=== PATIENT | male | born 1970 | race African-American/Black ===

== ENCOUNTER 2017-04-21 10:33 | Emergency (ER) | payer BC ==
[~2017-04-21 10:33] MED LIST: LORT5TAB PO; Z.0.NO CURRENT MEDS
[2017-04-21 10:36] VITALS: BP 226/135; PULSE 90; RESP 16; TEMP 98.1; O2SAT 99
[2017-04-21] MEDS ORDERED: AMLO10TA2 PO (10:42)
[2017-04-21] MEDS ORDERED: METO50TA PO (10:42)
[2017-04-21] MEDS ORDERED: PRAS5TAB PO (10:43)
[2017-04-21 11:05] VITALS: BP 177/115; PULSE 85; RESP 18; O2SAT 97
--- NOTE | 2017-04-21 11:34 | PD ---
HPI Chief Complaint: Musculoskeletal Complaint Time Seen by Provider: 11:27 Travel History International Travel<30 days: No Contact w/Intl Traveler<30days: No Traveled to known affect area: No History of Present Illness HPI This 47-year-old male is complaining of pain in his right knee. He says he was standing yesterday and he believes he twisted it. He had a sudden pain in his knee and has had some trouble walking since then. He has had trouble with the knee in the past. He has had a left knee replacement. He has had arthroscopic surgery on his right knee and had an arthrotomy [facility] Past Medical History Hx Anticoagulant Therapy: Yes Blood Disorders: No Cancer: No Cardiovascular Problems: Yes High Cholesterol: Yes Diabetes: Yes Patient Takes Glucophage: No Endocrine: Yes Gastrointestinal Disorders: Yes GERD: Yes Genitourinary: No Headaches: Yes Hypertension: Yes Immune Disorder: No Implanted Vascular Access Dvce: Yes Musculoskeletal: No Neurologic: Yes Psychiatric: No Reproductive: No Respiratory: No Tetanus Vaccination: > 5 Years Influenza Vaccination: No Past Surgical History Abdominal Surgery: Yes (ABDOMINAL HERNIA REPAIR) Body Medical Devices: SCREWS IN RIGHT KNEE Other Surgery: Yes Social History Alcohol Use: Yes (RARELY) Tobacco Use: No Substance Use: No Allergies-Medications (Allergen,Severity, Reaction): Coded Allergies: morphine (Unverified Allergy, Severe, ITCHY AND HOT, 04/21/17) Reported Meds & Prescriptions Reported Meds & Active Scripts Active Reported Effient (Prasugrel) 5 Mg Tab 5 Mg PO DAILY Amlodipine (Amlodipine Besylate) 10 Mg Tab 10 Mg PO DAILY Metoprolol Tartrate 50 Mg Tab 50 Mg PO BID Review of Systems Except as stated in HPI: all other systems reviewed are Neg General / Constitutional: No: Fever, Chills Eyes: No: Diploplia, Blurred Vision HENT: No: Headaches, Vertigo Cardiovascular: No: Chest Pain or Discomfort Respiratory: No: Cough, Shortness of Breath Gastrointestinal: No: Vomiting, Diarrhea Musculoskeletal: Positive: Myalgias, Arthralgias Skin: No Rash, No Itching Neurologic: No: Weakness, Dizziness Endocrine: No: Heat Intolerance, Cold Intolerance Hematologic/Lymphatic: No: Easy Bruising Physical Exam Narrative GENERAL: Well-developed male SKIN: Focused skin assessment warm/dry. HEAD: Atraumatic. Normocephalic. EYES: Pupils equal and round. No scleral icterus. No injection or drainage. ENT: No nasal bleeding or discharge. Mucous membranes pink and moist. NECK: Trachea midline. No JVD. MUSCULOSKELETAL: Right knee has some tenderness in the anterior portion. There is no deformity. There is no warmth or erythema. No crepitus with flexion and extension. There is no gross instability NEUROLOGICAL: Awake and alert. No obvious cranial nerve deficits. Motor grossly within normal limits. Normal speech. PSYCHIATRIC: Appropriate mood and affect; insight and judgment normal. Data Data Last Documented VS Vital Signs Date Time Temp Pulse Resp B/P (MAP) Pulse Ox O2 Delivery O2 Flow Rate FiO2 04/21/17 12:00 75 16 171/111 (131) 98 Room Air 04/21/17 10:36 98.1 Orders Orders Knee, Complete (4vws) (04/21/17 11:32) Clonidine (Catapres) (04/21/17 12:00) MDM Medical Decision Making Medical Screen Exam Complete: Yes Emergency Medical Condition: Yes Medical Record Reviewed: Yes Differential Diagnosis Differential includes fracture, internal derangement, osteoarthritis Narrative Course X-ray shows extensive degenerative changes. Patient has a follow-up appointment with Dr. Prieto Diagnosis Primary Impression: Osteoarthritis of right knee Disposition: DISCHARGE HOME Condition: Stable Barney Dorman MD Apr 21, 2017 11:34
[2017-04-21 12:00] VITALS: BP 171/111; PULSE 75; RESP 16; O2SAT 98
[2017-04-21] MEDS ORDERED: cloNIDine HCL 0.2 MG TAB PO ONE (12:00)
--- NOTE | 2017-04-21 12:19 | RADRPT ---
EXAM DATE/TIME: 04/21/2017 11:35 [facility] COMPARISON: No previous studies available for comparison. INDICATIONS : No known injury. Patient felt pop while taking a step yesterday. Pain on anterior surface. MEDICAL HISTORY : None. SURGICAL HISTORY : Total knee replacement, left. Rt knee meniscus repair. ENCOUNTER: Initial ACUITY: 1 day PAIN SCORE: 7/10 LOCATION: Right Knee FINDINGS: There are postoperative findings of presumed previous ligament repair with a staple overlying the lat eral distal femoral metaphyseal cortical surface and a screw traversing the proximal tibial metadiaph yseal region. There is some arthritic change present with tricompartmental joint space narrowing and osteophyte formation. There is no evidence of fracture, dislocation or bony destruction. CONCLUSION: No acute bony findings. Paulo Pham MD on April 21, 2017 at 12:16 Board Certified Radiologist. This report was verified electronically.
[2017-04-21 12:40] VITALS: BP 169/105; PULSE 77; RESP 18; O2SAT 98
[2017-04-21 13:25] VITALS: BP 165/102
== END 2017-04-21 13:26 | disposition home or self-care (01) ==
LOC: PHED 10:33
DX: M17.11 Unilateral primary osteoarthritis, right knee (principal); E11.9 Type 2 diabetes mellitus without complications; E78.00 Pure hypercholesterolemia, unspecified; I10 Essential (primary) hypertension; K21.9 Gastro-esophageal reflux disease without esophagitis
CPT/HCPCS: 73564; 99284

== ENCOUNTER 2017-07-22 10:25 | Inpatient (IN) | payer BC, OTHER ==
[~2017-07-22] VITALS: Ht 172.7 cm; Wt 102.2 kg
[2017-07-22] VITALS (7 sets, daily range): BP systolic 142–225; BP diastolic 65–124; PULSE 74–92; RESP 16–20; TEMP 98.6; O2SAT 96–100
[~2017-07-22 10:25] MED LIST changes: +AMLO10TA2 PO; -LORT5TAB PO; +METO50TA PO; +PRAS5TAB PO; -Z.0.NO CURRENT MEDS
[2017-07-22] MEDS ORDERED: hydrALAZINE HCL 20 MG/ML VIAL IV PUSH ONE ×3 (11:00→18:30)
--- NOTE | 2017-07-22 11:01 | PD ---
HPI Chief Complaint: Neuro Symptoms/ Deficits Time Seen by Provider: 10:50 Travel History International Travel<30 days: No Contact w/Intl Traveler<30days: No Traveled to known affect area: No History of Present Illness HPI This is a 47-year-old male with history of hypertension, hyperlipidemia, coronary artery disease, who presents today with complaints of intermittent slurred speech over the last several days. Patient also reports intermittent chest discomfort over last several days. Patient reports that he has not been taking his blood pressure medications as prescribed. He states he takes it a few days a week but not consistently. The patient denies any chest pain at the time of my examination. He denies any headache or blurry vision. He states that he felt as though he was having some slight slurred speech. He denies this at this time now. Patient's blood pressure was noted to be elevated. There are no other complaints at time of examination. PFSH Past Medical History Hx Anticoagulant Therapy: Yes Blood Disorders: No Cancer: No Cardiovascular Problems: Yes High Cholesterol: Yes Diabetes: Yes Endocrine: Yes Gastrointestinal Disorders: Yes GERD: Yes Genitourinary: No Headaches: Yes Hypertension: Yes Immune Disorder: No Implanted Vascular Access Dvce: Yes Musculoskeletal: No Neurologic: Yes Psychiatric: No Reproductive: No Respiratory: No Past Surgical History Abdominal Surgery: Yes (ABDOMINAL HERNIA REPAIR) Body Medical Devices: SCREWS IN RIGHT KNEE Other Surgery: Yes Social History Alcohol Use: Yes (RARELY) Tobacco Use: No Substance Use: No Allergies-Medications (Allergen,Severity, Reaction): Coded Allergies: morphine (Unverified Allergy, Severe, ITCHY AND HOT, 04/21/17) Reported Meds & Prescriptions Reported Meds & Active Scripts Active Reported Effient (Prasugrel) 5 Mg Tab 5 Mg PO DAILY Amlodipine (Amlodipine Besylate) 10 Mg Tab 10 Mg PO DAILY Metoprolol Tartrate 50 Mg Tab 50 Mg PO BID Review of Systems Except as stated in HPI: all other systems reviewed are Neg General / Constitutional: No: Fever, Chills Eyes: No: Blurred Vision, Photophobia HENT: No: Headaches, Nosebleed Cardiovascular: No: Chest Pain or Discomfort, Palpitations Respiratory: No: Cough, Shortness of Breath Gastrointestinal: No: Nausea, Vomiting, Abdominal Pain Genitourinary: No: Dysuria, Decreased Urinary Output Musculoskeletal: No: Weakness, Pain Neurologic: Positive: Other (Intermittent slurred speech), No: Weakness, Dizziness, Headache, Change in Mentation Psychiatric: No: Substance Abuse Physical Exam Narrative GENERAL: This is a well-developed well-nourished male in no acute respiratory distress. SKIN: Focused skin assessment warm/dry. HEAD: Atraumatic. Normocephalic. EYES: Pupils equal and round. Extraocular muscles were intact. No scleral icterus. No injection or drainage. ENT: No nasal bleeding or discharge. Mucous membranes pink and moist. NECK: Trachea midline. Supple. CARDIOVASCULAR: Regular rate and rhythm. No murmur appreciated. RESPIRATORY: No accessory muscle use. Clear to auscultation. Breath sounds equal bilaterally. GASTROINTESTINAL: Abdomen soft, non-tender, nondistended. MUSCULOSKELETAL: No obvious deformities. No clubbing. No cyanosis. No edema. NEUROLOGICAL: Awake and alert. No obvious cranial nerve deficits. Motor grossly within normal limits. Normal speech. PSYCHIATRIC: Appropriate mood and affect; insight and judgment normal. Data Data Last Documented VS Vital Signs Date Time Temp Pulse Resp B/P (MAP) Pulse Ox O2 Delivery O2 Flow Rate FiO2 07/22/17 16:30 74 18 142/65 (90) 100 Room Air 07/22/17 10:30 98.6 Orders Orders Electrocardiogram (07/22/17 ) Complete Blood Count With Diff (07/22/17 10:50) Comprehensive Metabolic Panel (07/22/17 10:50) Ckmb (Isoenzyme) Profile (07/22/17 10:50) Troponin I (07/22/17 10:50) Chest, Single Ap (07/22/17 10:50) Ct Brain W/O Iv Contrast(Rout) (07/22/17 10:50) Iv Access Insert/Monitor (07/22/17 10:50) Ecg Monitoring (07/22/17 10:50) Oximetry (07/22/17 10:50) Hydralazine Inj (Apresoline Inj) (07/22/17 11:00) CKMB (07/22/17 11:11) CKMB% (07/22/17 11:11) Ckmb (Isoenzyme) Profile (07/22/17 14:53) Troponin I (07/22/17 14:53) Hydralazine Inj (Apresoline Inj) (07/22/17 16:00) CKMB (07/22/17 15:14) CKMB% (07/22/17 15:14) Admit To Inpatient (07/22/17 ) Code Status (07/22/17 16:06) Vital Signs (Adult) Q4H (07/22/17 16:06) Activity Bed Rest With Brp (07/22/17 16:06) Dynamometer Mechanic / Telemetry ANGELIQUE.Q8H (07/22/17 16:06) Intake + Output ANGELIQUE.QSHIFT (07/22/17 16:06) Diet Heart Healthy (07/22/17 Dinner) Sodium Chloride 0.9% Flush (Ns Flush) (07/22/17 16:15) Sodium Chloride 0.9% Flush (Ns Flush) (07/22/17 21:00) Basic Metabolic Panel (Bmp) (07/23/17 06:00) Complete Blood Count With Diff (07/23/17 06:00) Lipid Profile (07/23/17 16:06) RENIN (07/22/17 16:06) Ua Includes Microscopic (07/22/17 16:06) Inpatient Certification (07/22/17 ) Scd Bilateral/Knee High ANGELIQUE.QSHIFT (07/22/17 16:06) Consult Pt Eval & Treat (07/22/17 16:06) Enalaprilat Inj (Vasotec Inj) (07/22/17 16:15) Clonidine (Catapres) (07/22/17 16:15) Ckmb (Isoenzyme) Profile (07/22/17 18:00) Ckmb (Isoenzyme) Profile (07/23/17 00:00) Troponin I (07/22/17 18:00) Troponin I (07/23/17 00:00) Thyroid Stimulating Hormone (07/22/17 16:13) Electrocardiogram (07/22/17 18:00) Electrocardiogram (07/23/17 00:00) ^ Notify Of These Side Effects (07/22/17 16:13) Aspirin (Aspirin) (07/22/17 16:30) Nitroglycerin Sl (Nitrostat Sl) (07/22/17 16:15) Amlodipine (Norvasc) (07/22/17 16:30) Metoprolol Tartrate (Lopressor) (07/22/17 21:00) Prasugrel (Effient) (07/22/17 16:30) Admit Order (Ed Use Only) (07/22/17 17:18) Labs Laboratory Tests Test 07/22/17 11:11 07/22/17 15:14 White Blood Count 9.3 TH/MM3 Red Blood Count 4.29 MIL/MM3 Hemoglobin 12.4 GM/DL Hematocrit 37.2 % Mean Corpuscular Volume 86.7 FL Mean Corpuscular Hemoglobin 28.9 PG Mean Corpuscular Hemoglobin Concent 33.4 % Red Cell Distribution Width 13.1 % Platelet Count 212 TH/MM3 Mean Platelet Volume 10.9 FL Neutrophils (%) (Auto) 60.6 % Lymphocytes (%) (Auto) 28.5 % Monocytes (%) (Auto) 9.7 % Eosinophils (%) (Auto) 0.7 % Basophils (%) (Auto) 0.5 % Neutrophils # (Auto) 5.6 TH/MM3 Lymphocytes # (Auto) 2.6 TH/MM3 Monocytes # (Auto) 0.9 TH/MM3 Eosinophils # (Auto) 0.1 TH/MM3 Basophils # (Auto) 0.0 TH/MM3 CBC Comment DIFF FINAL Differential Comment Blood Urea Nitrogen 10 MG/DL Creatinine 1.04 MG/DL Random Glucose 194 MG/DL Total Protein 8.2 GM/DL Albumin 3.2 GM/DL Calcium Level 8.5 MG/DL Alkaline Phosphatase 87 U/L Aspartate Amino Transf (AST/SGOT) 40 U/L Alanine Aminotransferase (ALT/SGPT) 26 U/L Total Bilirubin 0.9 MG/DL Sodium Level 139 MEQ/L Potassium Level 3.7 MEQ/L Chloride Level 106 MEQ/L Carbon Dioxide Level 23.8 MEQ/L Anion Gap 9 MEQ/L Estimat Glomerular Filtration Rate 92 ML/MIN Total Creatine Kinase 353 U/L 306 U/L Creatine Kinase MB 1.7 NG/ML 1.8 NG/ML Creatine Kinase MB % 0.5 % Troponin I 0.23 NG/ML 0.22 NG/ML MDM Medical Decision Making Medical Screen Exam Complete: Yes Emergency Medical Condition: Yes Differential Diagnosis Hypertensive urgency versus intracranial bleed versus medication noncompliance Narrative Course 47-year-old male with history of hypertension, hyperlipidemia, who presents with complaints of episodic slurred speech and intermittent chest pain. Patient 's blood pressure was noted to be elevated here. The patient states that he has not been taking his blood pressure medicine as prescribed. Patient is EKG shows no evidence of acute ST elevation or depression. Patient's troponin was elevated at 0.23. Patient was initially given hydralazine 10 mg IV 1 dose. His blood pressure came down nicely. Repeat blood pressure subsequently showed it creeping back up again. He has been given another dose of 20 mg of hydralazine. He is also had an inch of Nitropaste placed on his anterior chest wall. He will be admitted to the [facility] service. Case was discussed with Dr. Bedoya who is in agreement. Diagnosis Primary Impression: Hypertensive urgency Additional Impressions: Elevated troponin Diabetes mellitus Admitting Information Admitting Physician Requests: Admit Victor Hugo Mi MD Jul 22, 2017 11:01
--- NOTE | 2017-07-22 11:25 | RADRPT ---
EXAM DATE/TIME: 07/22/2017 11:14 [facility] COMPARISON: No previous studies available for comparison. INDICATIONS : Slurred speech. RADIATION DOSE: 42.33 CTDIvol (mGy) MEDICAL HISTORY : Cardiovascular disease. Hypertension. SURGICAL HISTORY : None. ENCOUNTER: Initial ACUITY: 2 days PAIN SCALE: 0/10 LOCATION: cranial TECHNIQUE: Multiple contiguous axial images were obtained of the head. Using automated exposure control and adj ustment of the mA and/or kV according to patient size, radiation dose was kept as low as reasonably a chievable to obtain optimal diagnostic quality images. DICOM format image data is available electro nically for review and comparison. FINDINGS: CEREBRUM: The ventricles are normal for age. No evidence of midline shift, mass lesion, hemorrhage or acute in farction. No extra-axial fluid collections are seen. POSTERIOR FOSSA: The cerebellum and brainstem are intact. The 4th ventricle is midline. The cerebellopontine angle i s unremarkable. EXTRACRANIAL: The visualized portion of the orbits is intact. SKULL: The calvaria is intact. No evidence of skull fracture. CONCLUSION: Negative noncontrast head CT Thang Zamudio MD on July 22, 2017 at 11:19 Board Certified Radiologist. This report was verified electronically.
[2017-07-22 11:48] LABS: AUTOMATED NEUTROPHIL # 5.6 TH/MM3 (1.8-7.7); BASOPHIL % 0.5 % (0.0-2.0); EOSINOPHIL # 0.1 TH/MM3 (0-0.4); EOSINOPHIL % 0.7 % (0.0-4.0); HEMATOCRIT 37.2 % (39.0-51.0); HEMOGLOBIN 12.4 GM/DL (13.0-17.0); LYMPH % 28.5 % (9.0-44.0); LYMPHOCYTE # 2.6 TH/MM3 (1.0-4.8); MEAN CELL VOLUME 86.7 FL (80.0-100.0); MEAN CORPUSCULAR HEMOGLOBIN 28.9 PG (27.0-34.0); MEAN CORPUSCULAR HGB CONC 33.4 % (32.0-36.0); MEAN PLATELET VOLUME 10.9 FL (7.0-11.0); MONO % 9.7 % (0.0-8.0); MONOCYTE # 0.9 TH/MM3 (0-0.9); NEUT % 60.6 % (16.0-70.0); PLATELET COUNT 212 TH/MM3 (150-450); RED BLOOD COUNT 4.29 MIL/MM3 (4.50-5.90); RED CELL DISTRIBUTION WIDTH 13.1 % (11.6-17.2); WHITE BLOOD COUNT 9.3 TH/MM3 (4.0-11.0)
[2017-07-22 12:03] LABS: ALT (GPT) 26 U/L (12-78)
[2017-07-22 12:08] LABS: ALBUMIN 3.2 GM/DL (3.4-5.0); ALKALINE PHOSPHATASE 87 U/L (45-117); BICARBONATE 23.8 MEQ/L (21.0-32.0); BLOOD UREA NITROGEN 10 MG/DL (7-18); CALCIUM 8.5 MG/DL (8.5-10.1); CHLORIDE 106 MEQ/L (98-107); CREATININE 1.04 MG/DL (0.60-1.30); GLOMERULAR FILTRATION RATE 92 ML/MIN (>89); GLUCOSE,RANDOM 194 MG/DL (74-106); SODIUM (NA) 139 MEQ/L (136-145); TOTAL BILIRUBIN ADULT 0.9 MG/DL (0.2-1.0); TOTAL PROTEIN 8.2 GM/DL (6.4-8.2); TROPONIN I 0.23 NG/ML (0.02-0.05)
[2017-07-22 12:11] LABS: AST (GOT) 40 U/L (15-37)
--- NOTE | 2017-07-22 12:32 | RADRPT ---
EXAM DATE/TIME: 07/22/2017 11:47 [facility] COMPARISON: No previous studies available for comparison. INDICATIONS : Chest pains, cough, shortness of breath, right side face numbness. MEDICAL HISTORY : Myocardial infarction. Hypertension SURGICAL HISTORY : Coronary artery stent. ENCOUNTER: Initial ACUITY: 1 day PAIN SCORE: 6/10 LOCATION: Right chest FINDINGS: A single view of the chest demonstrates the lungs to be symmetrically aerated without evidence of mas s, infiltrate or effusion. Mild basal atelectasis. The cardiomediastinal contours are prominent. Oss eous structures are intact. CONCLUSION: 1. Cardiomegaly with bibasilar atelectasis. No effusion or pneumothorax. Allan Izaguirre MD on July 22, 2017 at 12:30 Board Certified Radiologist. This report was verified electronically.
[2017-07-22 16:07] LABS: TROPONIN I 0.22 NG/ML (0.02-0.05)
[2017-07-22] MEDS ORDERED: NITROGLYCERIN 0.4 MG SL 25 TABS/BTL SL PRN (16:15)
[2017-07-22] MEDS ORDERED: cloNIDine HCL 0.2 MG TAB PO PRN (16:15)
[2017-07-22] MEDS ORDERED: ENALAPRILAT 1.25 MG/ML VIAL IV PRN (16:15)
[2017-07-22] MEDS ORDERED: SODIUM CHLORIDE 0.9% FLUSH 10 ML FLUSH IV FLUSH PRN (16:15)
[2017-07-22] MEDS ORDERED: PRASUGREL 5 MG TAB PO SCH (16:30)
[2017-07-22] MEDS ORDERED: ASPIRIN 325 MG TAB PO SCH (16:30)
--- NOTE | 2017-07-22 17:11 | HHI.HP ---
HPI [facility] Hospitalists Primary Care Physician No Primary Care Physician Admission Diagnosis HTN urgency Chief Complaint: slurred speech over the last several days Travel History International Travel<30 Days: No Contact w/Intl Traveler <30 Da: No Traveled to Known Affected Are: No History of Present Illness This is a 47-year-old male with history of hypertension, hyperlipidemia, coronary artery disease, diabetes mellitus, GERD who presents to the ER today with complaints of intermittent slurred speech over the last several days. Patient also reports intermittent headaches over last several days. Patient reports that he has not been taking his blood pressure medications as prescribed. He states he takes his metoprolol a few days a week but not consistently. Patient has not taken his amlodipine in three months. The patient denies any chest pain at the time. He also denies blurry vision, focal weakness, fevers, chills, SOB, N/V/D/C. Patient's slurred speech has resolved. Patient had cardiac cath with 2 stents placed April 26, [address] Perry kramer [place] and has not taken his Effient or aspirin for about 1 year. Review of Systems Constitutional: DENIES: Fatigue, Fever, Chills Eyes: DENIES: Blurred vision, Diplopia, Photosensitivity Cardiovascular: DENIES: Chest pain, Palpitations, Dyspnea on Exertion, Lower Extremity Edema Gastrointestinal: DENIES: Abdominal pain, Constipation, Diarrhea, Nausea, Vomiting Neurologic: COMPLAINS OF: Headache, Speech Problems (slurred speech has resolved) Psychiatric: DENIES: Anxiety, Confusion, Mood changes Past Family Social History Past Medical History hypertension, hyperlipidemia, coronary artery disease, diabetes mellitus, GERD Patient had cardiac cath with 2 stents placed [address] Perry kramer [place] Past Surgical History cardiac cath with 2 stents placed 2015 Left knee replacement right knee surgery umbilical hernia repair of hand secondary to dog bite Reported Medications Effient (Prasugrel) 5 Mg Tab 5 Mg PO DAILY- has not been taking for the past year Amlodipine (Amlodipine Besylate) 10 Mg Tab 10 Mg PO DAILY - has not take in the last three months Metoprolol Tartrate 50 Mg Tab 50 Mg PO BID - does not take daily Allergies: Coded Allergies: morphine (Unverified Allergy, Severe, ITCHY AND HOT, 04/21/17) Family History Mother had CABG 2017 Father also has CAD Social History Works in [place] rare ETOH use denies tobacco use and illicit drug use Physical Exam Vital Signs Vital Signs Date Time Temp Pulse Resp B/P (MAP) Pulse Ox O2 Delivery O2 Flow Rate FiO2 07/22/17 11:45 83 18 173/95 (121) 97 Room Air 07/22/17 11:44 85 18 201/113 (142) 97 Room Air 07/22/17 11:01 85 18 98 Room Air 07/22/17 10:56 88 18 209/120 (149) 96 Room Air 07/22/17 10:56 87 20 96 Room Air 07/22/17 10:30 98.6 92 16 225/122 (156) 97 Physical Exam GENERAL: This is a well-nourished, well-developed patient, in no apparent distress. SKIN: No rashes, ecchymoses or lesions. Cool and dry. HEAD: Atraumatic. Normocephalic. No temporal or scalp tenderness. EYES: Extraocular motions intact. No scleral icterus. No injection or drainage. CARDIOVASCULAR: Regular rate and rhythm RESPIRATORY: Clear to auscultation. Breath sounds equal bilaterally. GASTROINTESTINAL: Abdomen soft, non-tender, nondistended. MUSCULOSKELETAL: Extremities without clubbing, cyanosis, or edema. No joint tenderness, effusion, or edema noted. No calf tenderness. Negative Homans sign bilaterally. NEUROLOGICAL: Awake and alert. No focal deficits. Motor and sensory grossly within normal limits. Five out of 5 muscle strength in all muscle groups. Normal speech. Laboratory Laboratory Tests Test 07/22/17 11:11 07/22/17 15:14 White Blood Count 9.3 Red Blood Count 4.29 Hemoglobin 12.4 Hematocrit 37.2 Mean Corpuscular Volume 86.7 Mean Corpuscular Hemoglobin 28.9 Mean Corpuscular Hemoglobin Concent 33.4 Red Cell Distribution Width 13.1 Platelet Count 212 Mean Platelet Volume 10.9 Neutrophils (%) (Auto) 60.6 Lymphocytes (%) (Auto) 28.5 Monocytes (%) (Auto) 9.7 Eosinophils (%) (Auto) 0.7 Basophils (%) (Auto) 0.5 Neutrophils # (Auto) 5.6 Lymphocytes # (Auto) 2.6 Monocytes # (Auto) 0.9 Eosinophils # (Auto) 0.1 Basophils # (Auto) 0.0 CBC Comment DIFF FINAL Differential Comment Blood Urea Nitrogen 10 Creatinine 1.04 Random Glucose 194 Total Protein 8.2 Albumin 3.2 Calcium Level 8.5 Alkaline Phosphatase 87 Aspartate Amino Transf (AST/SGOT) 40 Alanine Aminotransferase (ALT/SGPT) 26 Total Bilirubin 0.9 Sodium Level 139 Potassium Level 3.7 Chloride Level 106 Carbon Dioxide Level 23.8 Anion Gap 9 Estimat Glomerular Filtration Rate 92 Total Creatine Kinase 353 306 Creatine Kinase MB 1.7 1.8 Creatine Kinase MB % 0.5 Troponin I 0.23 0.22 Result Diagram: 07/22/17 1111 07/22/17 1111 Imaging Last Impressions Head CT 07/22/17 1050 Signed Impressions: Service Date/Time: Saturday, July 22, 2017 11:14 - CONCLUSION: Negative noncontrast head CT Thang Zamudio MD Chest X-Ray 07/22/17 1050 Signed Impressions: Service Date/Time: Saturday, July 22, 2017 11:47 - CONCLUSION: 1. Cardiomegaly with bibasilar atelectasis. No effusion or pneumothorax. MD Carlos Conroyi VTE Risk Assessment Caprini VTE Risk Assessment: No/Low Risk (score <= 1) Caprini Risk Assessment Model Point Value = 1 Point Value = 2 Point Value = 3 Point Value = 5 Age 41-60 Minor surgery BMI > 25 kg/m2 Swollen legs Varicose veins or History of unexplained or recurrent spontaneous Oral contraceptives or hormone replacement Sepsis (< 1 month) Serious lung disease, including pneumonia (< 1 month) Abnormal pulmonary function Acute myocardial infarction Congestive heart failure (< 1 month) History of inflammatory bowel disease Medical patient at bed rest Age 61-74 Arthroscopic surgery Major open surgery (> 45 min) Laparoscopic surgery (> 45 min) Malignancy Confined to bed (> 72 hours) Immobilizing plaster cast Central venous access Age >= 75 History of VTE Family history of VTE Factor V Leiden Prothrombin [id number] Lupus anticoagulant Anticardiolipin antibodies Elevated serum homocysteine Heparin-induced thrombocytopenia Other congenital or acquired thrombophilia Stroke (< 1 month) Elective arthroplasty Hip, pelvis, or leg fracture Acute spinal cord injury (< 1 month) Prophylaxis Regimen Total Risk Factor Score Risk Level Prophylaxis Regimen 0-1 Low Early ambulation 2 Moderate Order ONE of the following: *Sequential Compression Device (SCD) *Heparin 5000 units SQ BID 3-4 Higher Order ONE of the following medications: *Heparin 5000 units SQ TID *Enoxaparin/Lovenox 40 mg SQ daily (WT < 150 kg, CrCl > 30 mL/min) *Enoxaparin/Lovenox 30 mg SQ daily (WT < 150 kg, CrCl > 10-29 mL/min) *Enoxaparin/Lovenox 30 mg SQ BID (WT < 150 kg, CrCl > 30 mL/min) AND/OR *Sequential Compression Device (SCD) 5 or more Highest Order ONE of the following medications: *Heparin 5000 units SQ TID (Preferred with Epidurals) *Enoxaparin/Lovenox 40 mg SQ daily (WT < 150 kg, CrCl > 30 mL/min) *Enoxaparin/Lovenox 30 mg SQ daily (WT < 150 kg, CrCl > 10-29 mL/min) *Enoxaparin/Lovenox 30 mg SQ BID (WT < 150 kg, CrCl > 30 mL/min) AND *Sequential Compression Device (SCD) Assessment and Plan Problem List: (1) Hypertensive urgency ICD Codes: I16.0 - Hypertensive urgency Plan: Intermitted slurred speech and headache patient has not been taking medications as prescribed noted to be HTN upon arrival to the ER resume home BP medications Amlodipine 10 mg daily and metoprolol 50 mg PO BID clonidine as need for HTN CT head reviewed and read as negative head CT MRI requested (2) Diabetes mellitus ICD Codes: E11.9 - Type 2 diabetes mellitus without complications Plan: patient reports he was suppose to be on insulin but does not remember type and amount diabetic diet accu checks ACHS with SSI coverage start metformin 500 mg PO daily (3) Elevated troponin ICD Codes: R74.8 - Abnormal levels of other serum enzymes Plan: Troponin 0.23 on admission -> 0.22 repeat flat pattern thus far await third set of troponin patient denies chest pain EKG reviewed SR rate [address] changes noted Assessment and Plan Patient examined. Assessment and plan formulated with Yulia CORDERO I agree with the above. Pt lost to f/u with outpt Cardiology. Pt non-compliant with antihypertensive medications. Obtain serial cardiac enzymes. Neurologic symptoms resolved Obtain MRI brain. Physician Certification 2 Midnight Certification Type: Admission for Inpatient Services Order for Inpatient Services The services are ordered in accordance with Medicare regulations or non- Medicare payer requirements, as applicable. In the case of services not specified as inpatient-only, they are appropriately provided as inpatient services in accordance with the 2-midnight benchmark. Estimated LOS (days): 2 days is the estimated time the patient will need to remain in the hospital, assuming treatment plan goals are met and no additional complications. Post-Hospital Plan: Home Yulia Caldwell Jul 22, 2017 17:11 Paul Bedoya DO Jul 23, 2017 09:57
[2017-07-22] MEDS ORDERED: DEXTROSE 50% IN WATER 50 ML VIAL(D50) IV PUSH PRN (17:30)
[2017-07-22] MEDS ORDERED: GLUCAGON 1 MG/ML VIAL OTHER PRN (17:30)
[2017-07-22] MEDS: metFORMIN HCL 500 MG TAB PO SCH (18:21)
[2017-07-22] MEDS ORDERED: NITROGLYCERIN 2% OINT 1 GM PACKET TOPICAL ONE (18:30)
[2017-07-22 19:21] LABS: TROPONIN I 0.24 NG/ML (0.02-0.05)
[2017-07-22] MEDS: INSULIN ASPART SUPPLEMENTAL SCALE SQ SCH (19:45)
--- NOTE | 2017-07-22 20:31 | RADRPT ---
EXAM DATE/TIME: 07/22/2017 19:12 [facility] COMPARISON: CT BRAIN W/O CONTRAST, July 22, 2017, 11:14. INDICATIONS : Slurred speech. Cephalgia. MEDICAL HISTORY : Hypertension. Diabetes mellitus type 2. Cardiovascular disease. SURGICAL HISTORY : Coronary artery stent. Inguinal hernia repair. Total knee replacement, left. ENCOUNTER: Initial ACUITY: 1 day PAIN SCORE: 5/10 LOCATION: cranial TECHNIQUE: Multiplanar, multisequence MRI of the brain was performed without contrast. FINDINGS: CEREBRUM: The ventricles are normal for age. No evidence of midline shift, mass lesion, hemorrhage or acute in farction. There is a punctate area signal abnormality within the left midbrain at the junction betwe en the left cerebral peduncle and the cristian. This could represent a small focal area of demyelination. No extraaxial fluid collections are seen. The pituitary gland and suprasellar cistern are normal in configuration. WHITE MATTER: There are diffuse focal and confluent areas of increased signal seen throughout the cerebral white ma tter. POSTERIOR FOSSA: The cerebellum and brainstem are intact. The 4th ventricle is midline. The cerebellopontine angle is unremarkable. The cerebellar tonsils are normal in position. DIFFUSION IMAGING: No focal areas of restricted diffusion are seen. No evidence of acute infarction. EXTRACRANIAL: The visualized portions of the orbits and paranasal sinuses are unremarkable. CONCLUSION: 1. No acute abnormality seen. 2. Widespread demyelination. This is nonspecific. It could be from small vessel ischemic change versu s demyelinating conditions. Paulo Montalvo MD on July 22, 2017 at 20:27 Board Certified Radiologist. This report was verified electronically.
[2017-07-22] MEDS: METOPROLOL TARTRATE 50 MG TAB PO SCH (21:48)
[2017-07-22] MEDS: SODIUM CHLORIDE 0.9% FLUSH 10 ML FLUSH IV FLUSH SCH (22:47)
[2017-07-23] VITALS (19 sets, daily range): BP systolic 142–177; BP diastolic 88–118; PULSE 64–88; RESP 16–20; TEMP 98–98.4; O2SAT 95–99
[2017-07-23 00:26] LABS: BACTERIA, URINE RARE /hpf; BILIRUBIN, URINE NEG (NEG); BLOOD, URINE NEG (NEG); GLUCOSE,URINE NEG (NEG); HYALINE CAST, URINE 1 /lpf (RARE); KETONE, URINE NEG (NEG); MUCUS URINE FEW /lpf (OCC); NITRITE,URINE NEG (NEG); PH, URINE 5.5 (5.0-8.5); URINE COLOR YELLOW (YELLW/STRAW); URINE LEUKOCYTE ESTERASE NEG (NEG)
[2017-07-23 00:49] LABS: TROPONIN I 0.25 NG/ML (0.02-0.05)
[2017-07-23 05:33] LABS: AUTOMATED NEUTROPHIL # 6.3 TH/MM3 (1.8-7.7); BASOPHIL % 0.3 % (0.0-2.0); EOSINOPHIL # 0.1 TH/MM3 (0-0.4); EOSINOPHIL % 1.1 % (0.0-4.0); HEMATOCRIT 36.8 % (39.0-51.0); HEMOGLOBIN 12.1 GM/DL (13.0-17.0); LYMPH % 28.3 % (9.0-44.0); LYMPHOCYTE # 2.9 TH/MM3 (1.0-4.8); MEAN CELL VOLUME 86.5 FL (80.0-100.0); MEAN CORPUSCULAR HEMOGLOBIN 28.4 PG (27.0-34.0); MEAN CORPUSCULAR HGB CONC 32.8 % (32.0-36.0); MEAN PLATELET VOLUME 10.7 FL (7.0-11.0); MONO % 9.5 % (0.0-8.0); NEUT % 60.8 % (16.0-70.0); PLATELET COUNT 220 TH/MM3 (150-450); RED BLOOD COUNT 4.25 MIL/MM3 (4.50-5.90); RED CELL DISTRIBUTION WIDTH 13.2 % (11.6-17.2); WHITE BLOOD COUNT 10.4 TH/MM3 (4.0-11.0)
[2017-07-23 06:01] LABS: BICARBONATE 25.8 MEQ/L (21.0-32.0); CALCIUM 8.3 MG/DL (8.5-10.1); CREATININE 0.94 MG/DL (0.60-1.30)
[2017-07-23 06:05] LABS: CHOLESTEROL/ HDL RATIO 3.49 RATIO; HDL CHOLESTEROL 44.6 MG/DL (40.0-60.0)
[2017-07-23] MEDS: SODIUM CHLORIDE 0.9% FLUSH 10 ML FLUSH IV FLUSH SCH ×2 (08:04→21:03)
[2017-07-23] MEDS: INSULIN ASPART SUPPLEMENTAL SCALE SQ SCH ×4 (08:04→21:04)
[2017-07-23] MEDS: metFORMIN HCL 500 MG TAB PO SCH (09:04)
[2017-07-23] MEDS: ASPIRIN 325 MG TAB PO SCH (09:04)
[2017-07-23] MEDS: METOPROLOL TARTRATE 50 MG TAB PO SCH ×2 (09:04→21:03)
[2017-07-23] MEDS ORDERED: POTASSIUM CHLORIDE 20 MEQ CONTROLLED RELEASE TAB PO ONE (09:30)
--- NOTE | 2017-07-23 10:07 | HHI.PR ---
Subjective Remarks No new complaints. Pt denies slurred speech, word finding difficulties, or limb weakness. No c/o chest pain today, but pt relates that he was having episodes of left sided chest pain leading up to this admission. Objective Vitals Vital Signs Date Time Temp Pulse Resp B/P (MAP) Pulse Ox O2 Delivery O2 Flow Rate FiO2 07/23/17 09:09 98.0 74 20 177/118 (137) 97 07/23/17 08:44 07/23/17 07:56 98.2 80 16 173/106 (128) 95 Room Air 07/23/17 05:27 74 16 152/104 (120) 98 Room Air 07/23/17 00:28 88 16 148/88 (108) 98 Room Air 07/22/17 19:38 78 16 178/96 (123) 98 Room Air 07/22/17 18:22 80 18 202/124 (150) 98 Room Air 07/22/17 16:30 74 18 142/65 (90) 100 Room Air 07/22/17 11:45 83 18 173/95 (121) 97 Room Air 07/22/17 11:44 85 18 201/113 (142) 97 Room Air 07/22/17 11:01 85 18 98 Room Air 07/22/17 10:56 88 18 209/120 (149) 96 Room Air 07/22/17 10:56 87 20 96 Room Air 07/22/17 10:30 98.6 92 16 225/122 (156) 97 07/23/17 07/23/17 07/24/17 15:00 23:00 07:00 Intake Total 500 ml Balance 500 ml Intake Oral 500 ml Result Diagram: 07/23/17 04207/23/17 0425 Imaging Last Impressions Head CT 07/22/17 1050 Signed Impressions: Service Date/Time: Saturday, July 22, 2017 11:14 - CONCLUSION: Negative noncontrast head CT Thang Zamudio MD Chest X-Ray 07/22/17 1050 Signed Impressions: Service Date/Time: Saturday, July 22, 2017 11:47 - CONCLUSION: 1. Cardiomegaly with bibasilar atelectasis. No effusion or pneumothorax. Allan Izaguirre MD Brain MRI 07/22/17 0000 Signed Impressions: Service Date/Time: Saturday, July 22, 2017 19:12 - CONCLUSION: 1. No acute abnormality seen. 2. Widespread demyelination. This is nonspecific. It could be from small vessel ischemic change versus demyelinating conditions. Paulo Montalvo MD Objective Remarks GENERAL: This is a well-nourished, well-developed patient, in no apparent distress. CARDIOVASCULAR: Regular rate and rhythm without murmurs, gallops, or rubs. RESPIRATORY: Clear to auscultation. Breath sounds equal bilaterally. No wheezes , rales, or rhonchi. GASTROINTESTINAL: Abdomen soft, non-tender, nondistended. Normal active bowel sounds MUSCULOSKELETAL: Extremities without clubbing, cyanosis, or edema. NEURO: Alert & Oriented x4 to person, place, time, situation. Moves all ext x4 A/P Problem List: (1) Hypertensive urgency ICD Codes: I16.0 - Hypertensive urgency Plan: - Intermitted slurred speech and headache - patient has NOT been taking medications as prescribed - noted to be HTN upon arrival to the ER with BP 225/122 - outpt Amlodipine 10 mg daily and metoprolol 50 mg PO BID, resumed - some improvement in BP readings, but will need to adjust medications further - start procardia xl 60mg BID - clonidine as need for HTN - CT brain (07/22) --> NO acute findings - MRI brain (07/22/17) --> widespread demyelination - suspect small vessel ischemic changes. MS seems less likely - Consult Neurology - DVT prophylaxis - supportive care - anticipate d/c to home 07/24/17 (2) Chest pain ICD Codes: R07.9 - Chest pain, unspecified Status: Acute Plan: - Pt has h/o CAD and prior coronary stents Apr 2016, but did NOT keep f/ u with Cardiology - Pt states that he had chest pain upon admission - serial Troponins 0.23, 0.22. 0.25 - No acute ischemic changes on serial EKGs - CXR (07/22) --> cardiomegaly - obtain lexiscan - obtain echocardiogram (3) Diabetes mellitus ICD Codes: E11.9 - Type 2 diabetes mellitus without complications Status: Chronic Plan: - stable - patient reports he was suppose to be on insulin but does not remember type and amount - diabetic diet - accu checks ACHS with SSI coverage - started metformin 500 mg PO daily (07/22) Problem Qualifiers (1) Chest pain: Qualified Codes: R07.2 - Precordial pain (2) Diabetes mellitus: Qualified Codes: E11.8 - Type 2 diabetes mellitus with unspecified complications Paul Bedoya DO Jul 23, 2017 10:07
[2017-07-23] MEDS ORDERED: ACETAMINOPHEN 500 MG CPLT PO PRN (11:00)
[2017-07-23] MEDS ORDERED: NIFEdipine 60 MG SUSTAINED RELEASE TAB PO ONE (12:00)
--- NOTE | 2017-07-23 14:03 | EKG ---
Date Performed: 07/22/2017 Time Performed: 10:43:09 PTAGE: 47 years EKG: Sinus rhythm LEFT ATRIAL ENLARGEMENT INFERIOR MYOCARDIAL INFARCTION ABNORMAL ECG Compared to PREVIOUS TRACING , evidence for inferior infarction is now present. PREVIOUS TRACIN 19.33 DOCTOR: Chase Louis Interpretating Date/Time 07/23/2017 14:02:16
[2017-07-23] MEDS ORDERED: REGADENOSON INJ 0.4 MG/5 ML SYR ONE (14:08)
--- NOTE | 2017-07-23 14:44 | ECHRPT ---
Indication: HEART FAILURE CONCLUSIONS Moderately dilated left ventricle. Mild concentric left ventricular hypertrophy. The left ventricular systolic function is cnrngoxh-gg-byoigve reduced with an estimated ejection fra ction in the range of 37%. Trace mitral valve regurgitation. There is a trivial pericardial effusion present. BP: / HR: Rhythm: MEASUREMENTS (Male / Female) Normal Values Technical Quality: 2D ECHO LV Diastolic Diameter PLAX 5.5 cm 4.2 - 5.9 / 3.9 - 5.3 cm LV Systolic Diameter PLAX 4.7 cm IVS Diastolic Thickness 1.2 cm 0.6 - 1.0 / 0.6 - 0.9 cm LVPW Diastolic Thickness 1.6 cm 0.6 - 1.0 / 0.6 - 0.9 cm LV Relative Wall Thickness 0.5 RV Internal Dim ED PLAX 2.3 cm LA Systolic Diameter LX 3.9 cm 3.0 - 4.0 / 2.7 - 3.8 cm LV Ejection Fraction MOD 4C 38.6 % LV Ejection Fraction 4C AL 40.9 % M-MODE Aortic Root Diameter MM 3.2 cm AV Cusp Separation MM 1.8 cm DOPPLER Mitral E Point Velocity 144.0 cm/s Mitral A Point Velocity 79.3 cm/s Mitral E to A Ratio 1.8 TR Peak Velocity 318.0 cm/s TR Peak Gradient 40.4 mmHg Right Atrial Pressure 5.0 mmHg Pulmonary Artery Systolic Pressu 45.4 mmHg Right Ventricular Systolic Press 45.4 mmHg FINDINGS LEFT VENTRICLE Moderately dilated left ventricle. Mild concentric left ventricular hypertrophy. The left ventricular systolic function is ymhgixtk-al-kbcolrz reduced with an estimated ejection fra ction in the range of 37%. RIGHT VENTRICLE Normal right ventricular size and systolic function. LEFT ATRIUM The left atrial size is normal. RIGHT ATRIUM The right atrial size is normal. ATRIAL SEPTUM Normal atrial septal thickness without atrial level shunting by limited color doppler interrogation. AORTA The aortic root and proximal ascending aorta are normal in size on limited imaging. MITRAL VALVE Trace mitral valve regurgitation. AORTIC VALVE Trileaflet aortic valve. No aortic valve stenosis or regurgitation. TRICUSPID VALVE Structurally normal tricuspid valve with slight sclerosis. PULMONARY VALVE No pulmonary valve regurgitation or stenosis. VESSELS The inferior vena cava is normal in size. PERICARDIUM There is a trivial pericardial effusion present. Olvin Thompson MD (Electronically Signed) Final Date:23 July 2017 14:43
--- NOTE | 2017-07-23 14:51 | EKG ---
Date Performed: 07/23/2017 Time Performed: 00:02:00 PTAGE: 47 years EKG: Sinus rhythm POSSIBLE LEFT ATRIAL ENLARGEMENT INFERIOR MYOCARDIAL INFARCTION ABNORMAL ECG Since PREVIOUS TRACING , no significant change noted PREVIOUS TRACIN07/22/2017 18.20 DOCTOR: Chase Louis Interpretating Date/Time 07/23/2017 14:51:04
--- NOTE | 2017-07-23 14:51 | EKG ---
Date Performed: 07/23/2017 Time Performed: 05:18:50 PTAGE: 47 years EKG: Sinus rhythm POSSIBLE LEFT ATRIAL ENLARGEMENT POSSIBLE INFERIOR MYOCARDIAL INFARCTION ABNORMAL ECG Since the PREVIOUS TRACING , no significant change noted PREVIOUS TRACIN07/23/2017 00.02 DOCTOR: Chase Louis Interpretating Date/Time 07/23/2017 14:49:58
--- NOTE | 2017-07-23 14:52 | EKG ---
Date Performed: 07/22/2017 Time Performed: 18:20:08 PTAGE: 47 years EKG: Sinus rhythm LEFT ATRIAL ENLARGEMENT INFERIOR MYOCARDIAL INFARCTION ABNORMAL ECG Since the PREVIOUS TRACING , no significant change noted PREVIOUS TRACIN07/22/2017 10.43 DOCTOR: Chase Louis Interpretating Date/Time 07/23/2017 14:51:15
--- NOTE | 2017-07-23 15:54 | RADRPT ---
EXAM DATE/TIME: 07/23/2017 14:14 [facility] COMPARISON: No previous studies available for comparison. INDICATIONS : Chest pain. DOSE: 30.5 mCi Tc99m Myoview at stress. 10.0 mCi Tc99m Myoview at rest. 0.4 mg Lexiscan STRESS SYMPTOMS: Shortness of breath. EJECTION FRACTION: 30% MEDICAL HISTORY : Diabetes mellitus type 2. Hypertension. SURGICAL HISTORY : Total knee replacement, left. Umbilical hernia repair. Coronary artery stent. ENCOUNTER: Initial ACUITY: 4 - 6 days PAIN SCALE: 2/10 LOCATION: chest TECHNIQUE: The patient underwent pharmacologic stress with infusion of prescribed dose. Continuous ECG tracing was monitored during stress. Gated SPECT imaging was performed after stress and conventional SPECT i maging was performed at rest. The examination was performed on a SPECT/CT scanner, both attenuation and non-corrected datasets were reviewed. FINDINGS: DISTRIBUTION: The maximum perfused segment at stress is in the anterior wall. PERFUSION STUDY: The pattern of perfusion at stress is within normal limits. GATED STUDY: Global hypokinesis CONCLUSION: 1. No reversibility to suggest ischemia. Fixed perfusion defect inferior wall characteristic of prior infarction. 2. Global hypokinesis with ejection fraction 30% RISK CATEGORY: High (>3% Annual Mortality Rate) Allan Izaguirre MD on July 23, 2017 at 15:49 Board Certified Radiologist. This report was verified electronically.
--- NOTE | 2017-07-23 16:56 | MB ---
cc: Akbar Domínguez MD, PhD DATE: 07/23/2017 REASON FOR CONSULTATION: Slurred speech. HISTORY OF PRESENT ILLNESS: Mr. Camacho is a very pleasant 47-year-old male who has a history of hypertension. He states he has not been taking his hypertensive medications. He had an episode on Tuesday of transient slurred speech which resolved. He had no other symptoms. This recurred on Tuesday and he came to the emergency room. His symptoms have since resolved. He did have a headache, but no focal deficits. He was found to be very hypertensive. His blood pressure has since been controlled and he has had no recurrent episodes. PAST MEDICAL HISTORY: Remarkable for hypertension, hyperlipidemia, coronary artery disease, diabetes, GERD, cardiac catheterization in the past with 2 stents placed, left knee replacement, and umbilical hernia repair. MEDICINES AT HOME: Effient 5 mg daily, which he has not been taking; amlodipine 10 mg per day, which he has not been taking; metoprolol 50 mg b.i.d., which he is not taking. ALLERGIES: MORPHINE. NEUROLOGIC EXAMINATION: VITAL SIGNS: Blood pressure is 155/111, pulse 70, respiratory rate is 20, temperature 98.2 degrees. HIGHER CORTICAL FUNCTION: He is alert, oriented. SPEECH: Normal at this time. CRANIAL NERVES: Intact. MOTOR: No focal deficit. REFLEXES: Symmetric. DIAGNOSTIC STUDIES: CT scan of the brain is normal. MRI of the brain: No acute change. There is fairly extensive increased signal in the white matter on the flair, as well as a T2 images. These are fairly extensive in bilateral centrum semiovale. They do not have a perpendicular orientation to the ventricles. I do not see Gray's fingers. They are not entirely consistent with MS plaques. They appear to be more consistent with chronic ischemic changes, probably from longstanding hypertension. There are fairly confluent in the occipital poles bilaterally in the white matter as well. LABORATORY DATA: The white count 10,400; hemoglobin 12.1; hematocrit 36%; platelets 220,000. Sodium is 139, potassium 3.4, chloride 106, CO2 of 25.8. The BUN is 12, creatinine 0.94, glucose 168. GFR 104. Cholesterol 156, LDL 82, HDL 44.6. EKG is left atrial enlargement, old inferior [place], sinus rhythm, no atrial fibrillation. IMPRESSION: Transient slurred speech. This may have been a hypertensive encephalopathy, although transient ischemic attack is also in the differential. RECOMMENDATION: Blood pressure control as you are doing. I would also recommend echocardiogram. Given his young age, consider GEOVANI to rule out a patent foramen ovale. Also, check labs to rule out hypercoagulable state. Aspirin 325 mg daily. Also, consider statin therapy. Akbar Domínguez MD, PhD GURJIT/CHANTE , 04:20 PM , 04:55 PM
[2017-07-23] MEDS: guaiFENesin/CODEINE SYRUP 200 MG/20 MG/10 ML CUP PO PRN (17:41)
[2017-07-23] MEDS: LISINOPRIL 5 MG TAB PO SCH (21:02)
[2017-07-23] MEDS: NIFEdipine 60 MG SUSTAINED RELEASE TAB PO SCH (21:03)
--- NOTE | 2017-07-23 22:19 | RADRPT ---
EXAM DATE/TIME: 07/23/2017 22:24 [facility] COMPARISON: No previous studies available for comparison. INDICATIONS : Transient ischemic attack. MEDICAL HISTORY : Hypercholesterolemia. Hypertension. Gastroesophageal reflux disease. Diabetes. Anticoagulant therapy. SURGICAL HISTORY : Abdominal hernia repair. ENCOUNTER: Initial ACUITY: 1 day PAIN SCORE: 0/10 LOCATION: Bilateral neck PEAK SYSTOLIC VELOCITIES (cm/sec): ICA/CCA RATIO: Right: 0.9 Left: 0.8 ICA: Right: 79 Left: 70 CCA: Right: 93 Left: 92 ECA: Right: 74 Left: 60 VERTEBRAL: Right: 22 antegrade Left: 46 antegrade Elevated flow velocities and ICA/CCA ratios have been found to correlate with increased degrees of vessel stenosis, calculated as percentage of diameter relative to a normal segment of distal ICA/CCA FINDINGS: RIGHT CAROTID: No significant stenosis is visualized. The waveforms are within normal limits. LEFT CAROTID: No significant stenosis is visualized. The waveforms are within normal limits. VERTEBRAL ARTERIES: Antegrade flow is seen in both vertebral arteries. MISCELLANEOUS: None. CONCLUSION: No evidence for hemodynamically significant stenosis. Antegrade flow in bilateral vertebral arteries. Jin Chávez MD on July 23, 2017 at 22:16 Board Certified Radiologist. This report was verified electronically.
[2017-07-24] VITALS (26 sets, daily range): BP systolic 123–153; BP diastolic 84–96; PULSE 64–95; RESP 18–20; TEMP 98.1–98.3; O2SAT 94–98
--- NOTE | 2017-07-24 08:10 | PD.CONS ---
HPI Service cardiology Consult Requested By Reason for Consult TIA,GEOVANI Primary Care Physician No Primary Care Physician History of Present Illness This is a pleasant 47 yo AAM with history of CAD, s/p coronary artery stenting x 2 in 2017 ([facility]), diabetes and HTN who presented on 07/23/17 with slurred speech. Patient states he developed sudden onset slurred speech several days ago that last briefly and then returned again the next morning which prompted him to come to the ED. Upon arrival his systolic blood pressure was very elevated at 225. He admits to noncompliance with cardiac medication and has not followed up with new energy and conservation technician since his insurance changed at the beginning of this year. Echo reveals a dilated cardiomyopathy with a reduced EF of around 37%. He reported mild chest pain upon arrival to ED which has subsided; troponins elevated but remained flat; lexiscan performed which did not reveal any ischemia. carotid ultrasound is unremarkable. He does admit to having fatigue and productive cough x several weeks. Currently his speech is normal, no weakness, no chest pain or sob. (Ivis Shea) Review of Systems Consitutional: DENIES: Fever, Chills, Weight gain, Weight loss Respiratory: DENIES: Snoring, Shortness of breath, Wheezing, Sputum production Cardiovascular: DENIES: Chest pain, Palpitations, Syncope, Tachycardia Gastrointestinal: DENIES: Nausea, Vomiting, Change in bowel habits, Reflux, Bloody stools, Melena (Ivis Shea) Past Family Social History Allergies: Coded Allergies: morphine (Unverified Allergy, Severe, ITCHY AND HOT, 04/21/17) Past Medical History hypertension, hyperlipidemia, coronary artery disease, diabetes mellitus, GERD Patient had cardiac cath with 2 stents placed ry [address] Amador in [place] Past Surgical History cardiac cath with 2 stents placed 2015 Left knee replacement right knee surgery umbilical hernia repair of hand secondary to dog bite Reported Medications Reported Meds & Active Scripts Active Reported Effient (Prasugrel) 5 Mg Tab 5 Mg PO DAILY Amlodipine (Amlodipine Besylate) 10 Mg Tab 10 Mg PO DAILY Metoprolol Tartrate 50 Mg Tab 50 Mg PO BID Active Ordered Medications Current Medications Medications (Trade) Dose Ordered Sig/Margarita Route Start Time Stop Time Status Last Admin (NS Flush) 2 ml UNSCH PRN IV FLUSH 07/22/17 16:15 (NS Flush) 2 ml BID IV FLUSH 07/22/17 21:00 07/23/17 21:03 (Vasotec Inj) 1.25 mg Q6H PRN IV 07/22/17 16:15 07/23/17 08:04 (Catapres) 0.2 mg Q6H PRN PO 07/22/17 16:15 07/22/17 21:03 (Nitrostat Sl) 0.4 mg Q5M PRN SL 07/22/17 16:15 (Lopressor) 50 mg BID PO 07/22/17 21:00 07/23/17 21:03 (Aspirin) 325 mg DAILY PO 07/23/17 09:00 07/23/17 09:04 (D50w (Vial) Inj) 50 ml UNSCH PRN IV PUSH 07/22/17 17:30 (Glucagon Inj) 1 mg UNSCH PRN OTHER 07/22/17 17:30 (NovoLOG SUPPLEMENTAL SCALE) 1 ACHS SLIDING SCALE SQ 07/22/17 21:00 07/23/17 21:04 (Glucophage) 500 mg DAILY PO 07/22/17 18:00 07/23/17 09:04 (Tylenol) 500 mg Q6H PRN PO 07/23/17 11:00 (Procardia Xl) 60 mg Q12HR PO 07/23/17 21:00 07/23/17 21:03 (Robitussin Ac 200-20 Mg/10 ml Liq) 10 ml Q6H PRN PO 07/23/17 11:00 07/23/17 17:41 (Prinivil) 5 mg Q12HR PO 07/23/17 21:00 07/23/17 21:02 Family History Mother had CABG 2017 Father also has CAD Social History Works in [employer] rare ETOH use denies tobacco use and illicit drug use (Ivis Shea) Physical Exam Vital Signs Vital Signs Date Time Temp Pulse Resp B/P (MAP) Pulse Ox O2 Delivery O2 Flow Rate FiO2 07/24/17 06:00 78 07/24/17 05:00 84 07/24/17 04:00 98.2 83 18 140/91 (107) 96 07/24/17 04:00 83 07/24/17 03:00 80 07/24/17 02:00 76 07/24/17 01:00 71 07/24/17 00:00 98.3 70 18 135/84 (101) 98 07/24/17 00:00 70 07/23/17 23:00 75 07/23/17 22:00 74 07/23/17 21:00 78 07/23/17 20:00 98.1 72 18 142/96 (111) 97 07/23/17 20:00 72 07/23/17 18:00 78 07/23/17 17:02 98.4 80 20 153/96 (115) 99 07/23/17 17:00 78 07/23/17 16:00 74 07/23/17 15:00 81 07/23/17 13:00 70 07/23/17 12:00 64 07/23/17 11:39 98.2 70 20 155/111 (126) 96 07/23/17 11:00 73 07/23/17 10:00 68 07/23/17 09:09 98.0 74 20 177/118 (137) 97 07/23/17 09:00 77 07/23/17 08:44 07/23/17 07:56 98.2 80 16 173/106 (128) 95 Room Air Physical Exam GENERAL: SKIN: Warm and dry. HEAD: Atraumatic. Normocephalic. EYES: Pupils equal and round. ENT: No nasal bleeding or discharge. NECK: Trachea midline. No JVD. CARDIOVASCULAR: Regular rate and rhythm. no murmurs RESPIRATORY: No accessory muscle use. Clear to auscultation. GASTROINTESTINAL: Abdomen soft, non-tender, nondistended. MUSCULOSKELETAL: Extremities without clubbing, cyanosis, or edema. No obvious deformities. NEUROLOGICAL: Awake and alert. No obvious cranial nerve deficits. Normal speech. PSYCHIATRIC: Appropriate mood and affect; insight and judgment normal. Laboratory Laboratory Tests Test 07/24/17 04:33 Laboratory Tests Test 07/24/17 04:33 (Ivis Shea) Result Diagram: 07/23/17 0425 07/23/17 0425 Imaging Last 48 hours Impressions Myocardial Perfusion Scan Nuc Med 07/23/17 0000 Signed Impressions: Service Date/Time: Sunday, July 23, 2017 14:14 - CONCLUSION: 1. No reversibility to suggest ischemia. Fixed perfusion defect inferior wall characteristic of prior infarction. 2. Global hypokinesis with ejection fraction 30%% RISK CATEGORY: High (>3%% Annual Mortality Rate) Allan Izaguirre MD Carotid Artery Ultrasound 07/23/17 0000 Signed Impressions: Service Date/Time: Sunday, July 23, 2017 22:24 - CONCLUSION: No evidence for hemodynamically significant stenosis. Antegrade flow in bilateral vertebral arteries. Jin Chávez MD Head CT 07/22/17 1050 Signed Impressions: Service Date/Time: Saturday, July 22, 2017 11:14 - CONCLUSION: Negative noncontrast head CT Thang Zamudio MD Chest X-Ray 07/22/17 1050 Signed Impressions: Service Date/Time: Saturday, July 22, 2017 11:47 - CONCLUSION: 1. Cardiomegaly with bibasilar atelectasis. No effusion or pneumothorax. Allan Izaguirre MD (Ivis Shea) Assessment and Plan Problem List: (1) Hypertensive urgency ICD Codes: I16.0 - Hypertensive urgency (2) TIA (transient ischemic attack) ICD Codes: G45.9 - Transient cerebral ischemic attack, unspecified Assessment and Plan 47 yo AAM with history of CAD, s/p coronary artery stenting x 2 in 2017 ([facility]), diabetes and HTN who presented on 07/23/17 with slurred speech. Patient states he developed sudden onset slurred speech several days ago that last briefly and then returned again the next morning which prompted him to come to the ED. Upon arrival his systolic blood pressure was very elevated at 225. He admits to noncompliance with cardiac medication and has not followed up with new energy and conservation technician since his insurance changed at the beginning of this year. Echo reveals a dilated cardiomyopathy with a reduced EF of around 37%. He reported mild chest pain upon arrival to ED which has subsided; troponins elevated but remained flat; lexiscan performed which did not reveal any ischemia. carotid ultrasound is unremarkable. He does admit to having fatigue and productive cough x several weeks. TIA- plan for GEOVANI to rule out cardioembolic origin review of telemetry does not show any concerning arrhythmia cont asa dilated cardiomyopathy- EF ~37% cont ACEi and bb; consider titration of lisinopril if BP will allow lexiscan did not show ischemia CAD- prior stenting 2017 at [facility] reports noncompliance with Effient would benefit from statin HTN- improving (Ivis Shea) Assessment and Plan cardiomyopathy - ischemic etiology. med mgt. repeat echo in few months on guidleline directed medical therapy TIA - possibl embolic etiology. NPO p MN GEOVANI tomorrow outpatient event monitor (Abran Wilburn MD) Ivis Shea Jul 24, 2017 08:10 Abran Wilburn MD Jul 24, 2017 11:55
[2017-07-24] MEDS: NIFEdipine 60 MG SUSTAINED RELEASE TAB PO SCH ×2 (08:39→20:33)
[2017-07-24] MEDS: metFORMIN HCL 500 MG TAB PO SCH (08:39)
[2017-07-24] MEDS: METOPROLOL TARTRATE 50 MG TAB PO SCH ×2 (08:39→20:34)
[2017-07-24] MEDS: guaiFENesin/CODEINE SYRUP 200 MG/20 MG/10 ML CUP PO PRN ×2 (08:39→17:31)
[2017-07-24] MEDS: ASPIRIN 325 MG TAB PO SCH (08:39)
[2017-07-24] MEDS: LISINOPRIL 5 MG TAB PO SCH ×2 (08:39→20:34)
[2017-07-24] MEDS: SODIUM CHLORIDE 0.9% FLUSH 10 ML FLUSH IV FLUSH SCH ×2 (08:40→20:34)
[2017-07-24] MEDS: INSULIN ASPART SUPPLEMENTAL SCALE SQ SCH ×4 (08:45→20:38)
--- NOTE | 2017-07-24 10:24 | HHI.PR ---
Subjective Remarks Patient offers no complaints today Plan for GEOVANI prior to DC Objective Vitals Vital Signs Date Time Temp Pulse Resp B/P (MAP) Pulse Ox O2 Delivery O2 Flow Rate FiO2 07/24/17 06:00 78 07/24/17 05:00 84 07/24/17 04:00 98.2 83 18 140/91 (107) 96 07/24/17 04:00 83 07/24/17 03:00 80 07/24/17 02:00 76 07/24/17 01:00 71 07/24/17 00:00 98.3 70 18 135/84 (101) 98 07/24/17 00:00 70 07/23/17 23:00 75 07/23/17 22:00 74 07/23/17 21:00 78 07/23/17 20:00 98.1 72 18 142/96 (111) 97 07/23/17 20:00 72 07/23/17 18:00 78 07/23/17 17:02 98.4 80 20 153/96 (115) 99 07/23/17 17:00 78 07/23/17 16:00 74 07/23/17 15:00 81 07/23/17 13:00 70 07/23/17 12:00 64 07/23/17 11:39 98.2 70 20 155/111 (126) 96 07/23/17 11:00 73 Result Diagram: 07/23/17 0425 07/23/17 0425 Other Results Laboratory Tests Test 07/22/17 11:11 07/22/17 15:14 07/22/17 18:26 07/23/17 00:00 White Blood Count 9.3 TH/MM3 Red Blood Count 4.29 MIL/MM3 Hemoglobin 12.4 GM/DL Hematocrit 37.2 % Mean Corpuscular Volume 86.7 FL Mean Corpuscular Hemoglobin 28.9 PG Mean Corpuscular Hemoglobin Concent 33.4 % Red Cell Distribution Width 13.1 % Platelet Count 212 TH/MM3 Mean Platelet Volume 10.9 FL Neutrophils (%) (Auto) 60.6 % Lymphocytes (%) (Auto) 28.5 % Monocytes (%) (Auto) 9.7 % Eosinophils (%) (Auto) 0.7 % Basophils (%) (Auto) 0.5 % Neutrophils # (Auto) 5.6 TH/MM3 Lymphocytes # (Auto) 2.6 TH/MM3 Monocytes # (Auto) 0.9 TH/MM3 Eosinophils # (Auto) 0.1 TH/MM3 Basophils # (Auto) 0.0 TH/MM3 CBC Comment DIFF FINAL Differential Comment Blood Urea Nitrogen 10 MG/DL Creatinine 1.04 MG/DL Random Glucose 194 MG/DL Total Protein 8.2 GM/DL Albumin 3.2 GM/DL Calcium Level 8.5 MG/DL Alkaline Phosphatase 87 U/L Aspartate Amino Transf (AST/SGOT) 40 U/L Alanine Aminotransferase (ALT/SGPT) 26 U/L Total Bilirubin 0.9 MG/DL Sodium Level 139 MEQ/L Potassium Level 3.7 MEQ/L Chloride Level 106 MEQ/L Carbon Dioxide Level 23.8 MEQ/L Anion Gap 9 MEQ/L Estimat Glomerular Filtration Rate 92 ML/MIN Total Creatine Kinase 353 U/L 306 U/L 327 U/L 269 U/L Creatine Kinase MB 1.7 NG/ML 1.8 NG/ML 1.6 NG/ML 1.7 NG/ML Creatine Kinase MB % 0.5 % 0.5 % Troponin I 0.23 NG/ML 0.22 NG/ML 0.24 NG/ML 0.25 NG/ML Thyroid Stimulating Hormone 3rd Gen 1.230 uIU/ML Urine Color YELLOW Urine Turbidity CLEAR Urine pH 5.5 Urine Specific Arabi 1.021 Urine Protein 30 mg/dL Urine Glucose (UA) NEG mg/dL Urine Ketones NEG mg/dL Urine Occult Blood NEG Urine Nitrite NEG Urine Bilirubin NEG Urine Urobilinogen 2.0 MG/DL Urine Leukocyte Esterase NEG Urine RBC 1 /hpf Urine WBC 3 /hpf Urine Bacteria RARE /hpf Urine Hyaline Casts 1 /lpf Urine Mucus FEW /lpf Microscopic Urinalysis Comment CULT NOT INDICATED Test 07/23/17 04:25 07/24/17 04:33 White Blood Count 10.4 TH/MM3 Red Blood Count 4.25 MIL/MM3 Hemoglobin 12.1 GM/DL Hematocrit 36.8 % Mean Corpuscular Volume 86.5 FL Mean Corpuscular Hemoglobin 28.4 PG Mean Corpuscular Hemoglobin Concent 32.8 % Red Cell Distribution Width 13.2 % Platelet Count 220 TH/MM3 Mean Platelet Volume 10.7 FL Neutrophils (%) (Auto) 60.8 % Lymphocytes (%) (Auto) 28.3 % Monocytes (%) (Auto) 9.5 % Eosinophils (%) (Auto) 1.1 % Basophils (%) (Auto) 0.3 % Neutrophils # (Auto) 6.3 TH/MM3 Lymphocytes # (Auto) 2.9 TH/MM3 Monocytes # (Auto) 1.0 TH/MM3 Eosinophils # (Auto) 0.1 TH/MM3 Basophils # (Auto) 0.0 TH/MM3 CBC Comment DIFF FINAL Differential Comment Blood Urea Nitrogen 12 MG/DL Creatinine 0.94 MG/DL Random Glucose 168 MG/DL Calcium Level 8.3 MG/DL Sodium Level 139 MEQ/L Potassium Level 3.4 MEQ/L Chloride Level 106 MEQ/L Carbon Dioxide Level 25.8 MEQ/L Anion Gap 7 MEQ/L Estimat Glomerular Filtration Rate 104 ML/MIN Triglycerides Level 149 MG/DL Cholesterol Level 156 MG/DL LDL Cholesterol 82 MG/DL HDL Cholesterol 44.6 MG/DL Cholesterol/HDL Ratio 3.49 RATIO Imaging Last Impressions Head CT 07/22/17 1050 Signed Impressions: Service Date/Time: Saturday, July 22, 2017 11:14 - CONCLUSION: Negative noncontrast head CT Thang Zamudio MD Chest X-Ray 07/22/17 1050 Signed Impressions: Service Date/Time: Saturday, July 22, 2017 11:47 - CONCLUSION: 1. Cardiomegaly with bibasilar atelectasis. No effusion or pneumothorax. Allan Izaguirre MD Brain MRI 07/22/17 0000 Signed Impressions: Service Date/Time: Saturday, July 22, 2017 19:12 - CONCLUSION: 1. No acute abnormality seen. 2. Widespread demyelination. This is nonspecific. It could be from small vessel ischemic change versus demyelinating conditions. Paulo Montalvo MD Objective Remarks GENERAL: This is a well-nourished, well-developed patient, in no apparent distress. CARDIOVASCULAR: Regular rate and rhythm without murmurs, gallops, or rubs. RESPIRATORY: Clear to auscultation. Breath sounds equal bilaterally. No wheezes , rales, or rhonchi. GASTROINTESTINAL: Abdomen soft, non-tender, nondistended. Normal active bowel sounds MUSCULOSKELETAL: Extremities without clubbing, cyanosis, or edema. NEURO: Alert & Oriented x4 to person, place, time, situation. Moves all ext x4 A/P Problem List: (1) Hypertensive urgency ICD Codes: I16.0 - Hypertensive urgency Plan: - Intermitted slurred speech and headache - patient has NOT been taking medications as prescribed - noted to be HTN upon arrival to the ER with BP 225/122 - outpt Amlodipine 10 mg daily and metoprolol 50 mg PO BID, resumed - improved BP readings - continue procardia xl 60mg BID, enalapril 5mg BID, metoprolol 50mg BID - clonidine as need for HTN - CT brain (07/22) --> NO acute findings - MRI brain (07/22/17) --> widespread demyelination - Case d/w Dr. Domínguez (07/23). Changes likely d/t untreated HTN. Recommend GEOVANI to r/o PFO - DVT prophylaxis - supportive care - anticipate d/c to home 07/24/17 (2) Chest pain ICD Codes: R07.9 - Chest pain, unspecified Status: Acute Plan: - Pt has h/o CAD and prior coronary stents Apr 2016, but did NOT keep f/ u with Cardiology - Pt states that he had chest pain upon admission - serial Troponins 0.23, 0.22. 0.25 - No acute ischemic changes on serial EKGs - CXR (07/22) --> cardiomegaly - lexiscan (07/23/17) --> NO reversible perfusion defects. - echocardiogram (07/22) --> moderately dilated LV, EF 37% - Pt will need outpt f/u with Cardiology in 2 weeks after discharge (3) Diabetes mellitus ICD Codes: E11.9 - Type 2 diabetes mellitus without complications Status: Chronic Plan: - stable - patient reports he was suppose to be on insulin but does not remember type and amount - diabetic diet - accu checks ACHS with SSI coverage - started metformin 500 mg PO daily (07/22) Assessment and Plan Patient examined. Assessment and plan formulated with Yulia Caldwell PA-C. I agree with the above. Case d/w pt and cousin Alaina Camacho RN at the pt's bedside. I very frankly explained to Mr. Camacho the findings during this hospitalization including: cardiomyopathy, cardiomegaly, and ischemic changes on brain MRI. Pt verbalized understanding of the importance of taking his medications after discharge, keeping f/u with physicians, maintaining proper diet, and keeping home blood sugar/blood pressure log. Case d/w Dr. Wilburn. Pt will have GEOVANI 07/25/17. Anticipate d/c to home 07/25/17. Problem Qualifiers (1) Chest pain: Qualified Codes: R07.2 - Precordial pain (2) Diabetes mellitus: Qualified Codes: E11.8 - Type 2 diabetes mellitus with unspecified complications Yulia Caldwell Jul 24, 2017 10:24 Paul Bedoya DO Jul 24, 2017 10:50
--- NOTE | 2017-07-24 19:13 | HHI.PR ---
Review/Management Diagnosis Hypertensive encephalopathy vs TIA Plan continue ASA follow up hypercoagulable labs GEOVANI -- to r/o pfo Diagnosis/Plan: Subjective Subjective Comments No acute events reported No further slurred speech Active Medications Current Medications Medications (Trade) Dose Ordered Sig/Margarita Route Start Time Stop Time Status Last Admin (NS Flush) 2 ml UNSCH PRN IV FLUSH 07/22/17 16:15 (NS Flush) 2 ml BID IV FLUSH 07/22/17 21:00 07/24/17 08:40 (Vasotec Inj) 1.25 mg Q6H PRN IV 07/22/17 16:15 07/23/17 08:04 (Catapres) 0.2 mg Q6H PRN PO 07/22/17 16:15 07/22/17 21:03 (Nitrostat Sl) 0.4 mg Q5M PRN SL 07/22/17 16:15 (Lopressor) 50 mg BID PO 07/22/17 21:00 07/24/17 08:39 (Aspirin) 325 mg DAILY PO 07/23/17 09:00 07/24/17 08:39 (D50w (Vial) Inj) 50 ml UNSCH PRN IV PUSH 07/22/17 17:30 (Glucagon Inj) 1 mg UNSCH PRN OTHER 07/22/17 17:30 (NovoLOG SUPPLEMENTAL SCALE) 1 ACHS SLIDING SCALE SQ 07/22/17 21:00 07/24/17 13:38 (Glucophage) 500 mg DAILY PO 07/22/17 18:00 07/24/17 08:39 (Tylenol) 500 mg Q6H PRN PO 07/23/17 11:00 (Procardia Xl) 60 mg Q12HR PO 07/23/17 21:00 07/24/17 08:39 (Robitussin Ac 200-20 Mg/10 ml Liq) 10 ml Q6H PRN PO 07/23/17 11:00 07/24/17 17:31 (Prinivil) 5 mg Q12HR PO 07/23/17 21:00 07/24/17 08:39 Allergies Allergies Coded Allergies morphine (Unverified Allergy, Severe, ITCHY AND HOT, 04/21/17) Exam I&O / VS Vital Signs Date Time Temp Pulse Resp B/P (MAP) Pulse Ox O2 Delivery O2 Flow Rate FiO2 07/24/17 18:00 90 07/24/17 17:00 82 07/24/17 16:00 80 07/24/17 15:59 98.1 64 18 145/92 (109) 96 07/24/17 15:00 72 07/24/17 14:00 72 07/24/17 13:00 68 07/24/17 12:00 64 07/24/17 11:18 98.1 64 18 136/87 (103) 96 07/24/17 11:00 76 07/24/17 10:00 74 07/24/17 09:00 82 07/24/17 08:00 80 07/24/17 07:30 98.3 78 20 123/85 (98) 94 07/24/17 07:00 76 07/24/17 06:00 78 07/24/17 05:00 84 07/24/17 04:00 98.2 83 18 140/91 (107) 96 07/24/17 04:00 83 07/24/17 03:00 80 07/24/17 02:00 76 07/24/17 01:00 71 07/24/17 00:00 98.3 70 18 135/84 (101) 98 07/24/17 00:00 70 07/23/17 23:00 75 07/23/17 22:00 74 07/23/17 21:00 78 07/23/17 20:00 98.1 72 18 142/96 (111) 97 07/23/17 20:00 72 Exam Comments alert, speech normal CN intact MOTOR 5/5 BUE Objective Micro and Labs Laboratory Tests Test 07/24/17 04:33 Diagnostic Tests carotid US--no significant stenosis Akbar Domínguez MD PhD Jul 24, 2017 19:13
[2017-07-25] VITALS (8 sets, daily range): BP systolic 130–156; BP diastolic 80–97; PULSE 71–85; RESP 18–20; TEMP 98.4–98.9; O2SAT 95–97
--- NOTE | 2017-07-25 07:48 | HHI.PR ---
Subjective Remarks eager for d/c after clay no new complaints Objective Vitals heart reg lung cta abd s/nt ext no edema Vital Signs Date Time Temp Pulse Resp B/P (MAP) Pulse Ox O2 Delivery O2 Flow Rate FiO2 07/25/17 06:00 75 07/25/17 05:00 79 07/25/17 04:00 98.4 77 20 130/80 (97) 96 07/25/17 04:00 77 07/25/17 03:00 83 07/25/17 02:00 80 07/25/17 01:00 79 07/25/17 00:00 71 07/25/17 00:00 98.6 71 18 131/85 (100) 95 07/24/17 23:00 92 07/24/17 22:00 95 07/24/17 21:00 90 07/24/17 20:00 82 07/24/17 20:00 98.2 82 18 153/96 (115) 94 07/24/17 18:00 90 07/24/17 17:00 82 07/24/17 16:00 80 07/24/17 15:59 98.1 64 18 145/92 (109) 96 07/24/17 15:00 72 07/24/17 14:00 72 07/24/17 13:00 68 07/24/17 12:00 64 07/24/17 11:18 98.1 64 18 136/87 (103) 96 07/24/17 11:00 76 07/24/17 10:00 74 07/24/17 09:00 82 07/24/17 08:00 80 Result Diagram: 07/23/17 0425 07/23/17 0425 Imaging Last Impressions Head CT 07/22/17 1050 Signed Impressions: Service Date/Time: Saturday, July 22, 2017 11:14 - CONCLUSION: Negative noncontrast head CT Thang Zamudio MD Chest X-Ray 07/22/17 1050 Signed Impressions: Service Date/Time: Saturday, July 22, 2017 11:47 - CONCLUSION: 1. Cardiomegaly with bibasilar atelectasis. No effusion or pneumothorax. Allan Izaguirre MD Brain MRI 07/22/17 0000 Signed Impressions: Service Date/Time: Saturday, July 22, 2017 19:12 - CONCLUSION: 1. No acute abnormality seen. 2. Widespread demyelination. This is nonspecific. It could be from small vessel ischemic change versus demyelinating conditions. Paulo Montalvo MD A/P Problem List: (1) Hypertensive urgency ICD Codes: I16.0 - Hypertensive urgency Status: Acute Plan: - Intermitted slurred speech and headache - patient has NOT been taking medications as prescribed - noted to be HTN upon arrival to the ER with BP 225/122 - was on outpt Amlodipine 10 mg daily and metoprolol 50 mg PO BID, - improved BP readings - continue procardia xl 60mg BID, enalapril 5mg BID, metoprolol 50mg BID - clonidine as need for HTN - CT brain (07/22) --> NO acute findings - MRI brain (07/22/17) --> widespread demyelination - Case d/w Dr. Domínguez (07/23). Changes likely d/t untreated HTN. Recommend CLAY to r/o PFO as htn encephalopathy vs tia considered CLAY today and plan for d/c home after. has f/u new pcp appt on 08/04 (2) Chest pain ICD Codes: R07.9 - Chest pain, unspecified Status: Acute Plan: - Pt has h/o CAD and prior coronary stents Apr 2016, but did NOT keep f/ u with Cardiology - Pt states that he had chest pain upon admission - serial Troponins 0.23, 0.22. 0.25 - No acute ischemic changes on serial EKGs - CXR (07/22) --> cardiomegaly - lexiscan (07/23/17) --> NO reversible perfusion defects. - echocardiogram (07/22) --> moderately dilated LV, EF 37% - Pt will need outpt f/u with Cardiology in 2 weeks after discharge (3) Diabetes mellitus ICD Codes: E11.9 - Type 2 diabetes mellitus without complications Status: Chronic Plan: - stable - patient reports he was suppose to be on insulin but does not remember type and amount - diabetic diet - accu checks ACHS with SSI coverage - started metformin Problem Qualifiers (1) Chest pain: Qualified Codes: R07.2 - Precordial pain (2) Diabetes mellitus: Qualified Codes: E11.8 - Type 2 diabetes mellitus with unspecified complications Doug Hwang MD Jul 25, 2017 07:48
--- NOTE | 2017-07-25 07:51 | PD.CARD.PN ---
Subjective Subjective Remarks denies chest pain, sob or palpitation. Objective Medications Current Medications Medications (Trade) Dose Ordered Sig/Margarita Route Start Time Stop Time Status Last Admin (NS Flush) 2 ml UNSCH PRN IV FLUSH 07/22/17 16:15 (NS Flush) 2 ml BID IV FLUSH 07/22/17 21:00 07/24/17 20:34 (Vasotec Inj) 1.25 mg Q6H PRN IV 07/22/17 16:15 07/23/17 08:04 (Catapres) 0.2 mg Q6H PRN PO 07/22/17 16:15 07/22/17 21:03 (Nitrostat Sl) 0.4 mg Q5M PRN SL 07/22/17 16:15 (Lopressor) 50 mg BID PO 07/22/17 21:00 07/24/17 20:34 (Aspirin) 325 mg DAILY PO 07/23/17 09:00 07/24/17 08:39 (D50w (Vial) Inj) 50 ml UNSCH PRN IV PUSH 07/22/17 17:30 (Glucagon Inj) 1 mg UNSCH PRN OTHER 07/22/17 17:30 (NovoLOG SUPPLEMENTAL SCALE) 1 ACHS SLIDING SCALE SQ 07/22/17 21:00 07/24/17 20:38 (Glucophage) 500 mg DAILY PO 07/22/17 18:00 07/24/17 08:39 (Tylenol) 500 mg Q6H PRN PO 07/23/17 11:00 (Procardia Xl) 60 mg Q12HR PO 07/23/17 21:00 07/24/17 20:33 (Robitussin Ac 200-20 Mg/10 ml Liq) 10 ml Q6H PRN PO 07/23/17 11:00 07/24/17 17:31 (Prinivil) 5 mg Q12HR PO 07/23/17 21:00 07/24/17 20:34 Vital Signs / I&O Vital Signs Date Time Temp Pulse Resp B/P (MAP) Pulse Ox O2 Delivery O2 Flow Rate FiO2 07/25/17 06:00 75 07/25/17 05:00 79 07/25/17 04:00 98.4 77 20 130/80 (97) 96 07/25/17 04:00 77 07/25/17 03:00 83 07/25/17 02:00 80 07/25/17 01:00 79 07/25/17 00:00 71 07/25/17 00:00 98.6 71 18 131/85 (100) 95 07/24/17 23:00 92 07/24/17 22:00 95 07/24/17 21:00 90 07/24/17 20:00 82 07/24/17 20:00 98.2 82 18 153/96 (115) 94 07/24/17 18:00 90 07/24/17 17:00 82 07/24/17 16:00 80 07/24/17 15:59 98.1 64 18 145/92 (109) 96 07/24/17 15:00 72 07/24/17 14:00 72 07/24/17 13:00 68 07/24/17 12:00 64 07/24/17 11:18 98.1 64 18 136/87 (103) 96 07/24/17 11:00 76 07/24/17 10:00 74 07/24/17 09:00 82 07/24/17 08:00 80 I/O 07/24/17 07/24/17 07/24/17 07/25/17 07/25/17 07/25/17 07:00 15:00 23:00 07:00 15:00 23:00 Intake Total 480 ml 480 ml Output Total 800 ml 800 ml Balance -320 ml -320 ml Intake Oral 480 ml 480 ml Output Urine Total 800 ml 800 ml Stool Total 0 ml 0 ml Physical Exam GENERAL: SKIN: Warm and dry. HEAD: Atraumatic. Normocephalic. EYES: Pupils equal and round. No scleral icterus. ENT: No nasal bleeding or discharge. NECK: Trachea midline. No JVD. CARDIOVASCULAR: Regular rate and rhythm. no murmurs RESPIRATORY: No accessory muscle use. Clear to auscultation. Breath sounds equal bilaterally. GASTROINTESTINAL: Abdomen soft, non-tender, nondistended. MUSCULOSKELETAL: Extremities without clubbing, cyanosis, or edema. No obvious deformities. NEUROLOGICAL: Awake and alert. No obvious cranial nerve deficits. Normal speech. PSYCHIATRIC: Appropriate mood and affect; insight and judgment normal. Assessment and Plan Problem List: (1) Hypertensive urgency ICD Codes: I16.0 - Hypertensive urgency Status: Acute (2) TIA (transient ischemic attack) ICD Codes: G45.9 - Transient cerebral ischemic attack, unspecified Assessment and Plan 47 yo AAM with history of CAD, s/p coronary artery stenting x 2 in 2017 ([facility]), diabetes and HTN who presented on 07/23/17 with slurred speech. Patient states he developed sudden onset slurred speech several days ago that last briefly and then returned again the next morning which prompted him to come to the ED. Upon arrival his systolic blood pressure was very elevated at 225. He admits to noncompliance with cardiac medication and has not followed up with new superintendent track since his insurance changed at the beginning of this year. TIA- GEOVANI today to rule out cardioembolic origin review of telemetry does not show any concerning arrhythmia outpatient event monitoring dilated ischemic cardiomyopathy- EF ~37%, repeat echo in 3 months cont ACEi and bb; no ischemia on stress test CAD- stenting 2017 at [facility] reports noncompliance with Effient would benefit from statin HTN- improving Ivis Shea Jul 25, 2017 07:51
[2017-07-25] MEDS: INSULIN ASPART SUPPLEMENTAL SCALE SQ SCH (08:00)
[2017-07-25] MEDS: METOPROLOL TARTRATE 50 MG TAB PO SCH (08:50)
[2017-07-25] MEDS: NIFEdipine 60 MG SUSTAINED RELEASE TAB PO SCH (08:50)
[2017-07-25] MEDS: ASPIRIN 325 MG TAB PO SCH (08:50)
[2017-07-25] MEDS: LISINOPRIL 5 MG TAB PO SCH (08:50)
[2017-07-25] MEDS: SODIUM CHLORIDE 0.9% FLUSH 10 ML FLUSH IV FLUSH SCH (09:00)
[2017-07-25] MEDS ORDERED: METF500 PO (12:29)
[2017-07-25] MEDS ORDERED: LISI-519 PO (12:29)
[2017-07-25] MEDS ORDERED: METO50TA PO (12:38)
[2017-07-25] MEDS ORDERED: NIFE60TA8 PO (12:38)
[2017-07-25] MEDS ORDERED: ASA325 PO (12:38)
--- NOTE | 2017-07-25 12:42 | HHI.DCPOC ---
Discharge Care Plan Diagnosis: (1) Cardiomyopathy (2) Hypertensive urgency (3) Diabetes mellitus Goals to Promote Your Health * To prevent worsening of your condition and complications * To maintain your health at the optimal level Directions to Meet Your Goals Take your medications as prescribed Follow your dietary instruction Follow activity as directed Keep your appointments as scheduled Take your immunizations and boosters as scheduled If your symptoms worsen call your PCP, if no PCP go to Urgent Care Center or Emergency Room Smoking is Dangerous to Your Health. Avoid second hand smoke Call the 24-hour hour crisis hotline for domestic abuse at Doug Hwang MD Jul 25, 2017 12:42
--- NOTE | 2017-07-25 12:51 | ECHRPT ---
Indication: CVA/TIA CONCLUSIONS Normal left ventricular size and wall thickness. The left ventricular systolic function is normal wi th an estimated ejection fraction in the range of 60-65%. Left ventricular diastolic function parameters a re normal. Normal left atrial appendage size with no evidence of thrombus formation. Normal atrial septal thickness without atrial level shunting by limited color doppler interrogation. No atrial level shunt is demonstrated by color flow Doppler or agitated saline imaging. BP: / HR: Rhythm: Technical Quality: Medications Complications Proc. Components The patient was brought to the diagnostic imaging area in a fasting state after o btaining an informed consent. The patient was premedicated with IV Versed and IV Fentanyl. The folding rules printing machine operator ior pharynx was sprayed with Cetacaine spray and the patient was administered viscous Xylocaine 2 %. The GEOVANI probe was passed into the posterior pharynx , mid-esophagus, distal esophagus, and gastric fundus. GEOVANI was performed at multiple levels. The patient tolerated the procedure well and there were no complications. The patient was transferred to the floor in satisfactory condition.. FINDINGS LEFT VENTRICLE Normal left ventricular size and wall thickness. The left ventricular systolic function is normal wi th an estimated ejection fraction in the range of 60-65%. Left ventricular diastolic function parameters a re normal. RIGHT VENTRICLE Normal right ventricular size and systolic function. LEFT ATRIUM The left atrial size is normal. RIGHT ATRIUM The right atrial size is normal. ATRIAL APPENDAGES Normal left atrial appendage size with no evidence of thrombus formation. ATRIAL SEPTUM Normal atrial septal thickness without atrial level shunting by limited color doppler interrogation. No atrial level shunt is demonstrated by color flow Doppler or agitated saline imaging. AORTA The aortic root and proximal ascending aorta are normal in size on limited imaging. MITRAL VALVE Mild mitral valve regurgitation. AORTIC VALVE Trileaflet aortic valve. No aortic valve stenosis or regurgitation. TRICUSPID VALVE Structurally normal tricuspid valve. No tricuspid valve stenosis or regurgitation. VESSELS The inferior vena cava is normal in size. PULMONARY VALVE The pulmonary valve is not well visualized. PERICADIUM No pericardial effusion. Abran Wilburn MD, FACC (Electronically Signed) Final Date:25 July 2017 12:50
[2017-07-25] MEDS: metFORMIN HCL 500 MG TAB PO SCH (13:12)
[2017-07-26 20:49] LABS: PROTEIN C ACTIVITY 63 % (70 - 150); PROTEIN S ACTIVITY 120 % (65 - 160)
[2017-07-27 09:52] LABS: DRVVT 1:1 MIX ND (CORRECTED); DRVVT CONFIRM ND (NEGATIVE); HEXAGONAL PHASE CONFIRM ND (NEGATIVE)
[2017-07-29 12:19] LABS: CARDIOLIPIN IGG AB <9.4 GPL; CARDIOLIPIN IGM AB <9.4 MPL
== END 2017-07-25 13:24 | disposition home or self-care (01) | DRG 69 ==
LOC: NEPE 10:25 → NEDA 17:20 → NEDH 07-23 00:14 → HCIS 07-23 08:33
PROVIDERS: ADMIT Hospitalist; ATTEND Hospitalist
PROC: B24BZZ4 Ultrasonography of Heart with Aorta, Transesophageal (ICD-10-PCS; principal; 2017-07-25)
DX: G45.9 Transient cerebral ischemic attack, unspecified (principal); I42.0 Dilated cardiomyopathy; I16.0 Hypertensive urgency; E11.9 Type 2 diabetes mellitus without complications; E78.5 Hyperlipidemia, unspecified; I25.10 Atherosclerotic heart disease of native coronary artery without angina pectoris; Z95.5 Presence of coronary angioplasty implant and graft; K21.9 Gastro-esophageal reflux disease without esophagitis; I10 Essential (primary) hypertension; R47.81 Slurred speech; Z91.14 Patient's other noncompliance with medication regimen; R74.8 Abnormal levels of other serum enzymes; Z96.652 Presence of left artificial knee joint; Z82.49 Family history of ischemic heart disease and other diseases of the circulatory system
CPT/HCPCS: 70450; 70551; 71045; 78452; 80048; 80053; 80061; 81001; 81240; 81241; 82550; 82552; 82948; 84244; 84443; 84484; 85025; 85303; 85306; 85613; 85730; 86147; 93005; 93017; 93306; 93312; 93320; 93325; 93880; 96374; A9502; J0360; J1815; J2785

== ENCOUNTER 2018-01-11 13:25 | Observation (INO) ==
[2018-01-11] MEDS ORDERED: hydrALAZINE HCl Inj 20 MG/ML Vial IV.PUSH ONE (17:13)
[2018-01-11] MEDS ORDERED: Labetalol HCl Inj 100 MG/20 ML Vial IV.PUSH ONE (17:19)
[2018-01-11] MEDS ORDERED: hydrALAZINE 25 MG Tablet PO ONE (17:20)
[2018-01-11 17:58] LABS: Baso # (Auto) 0.1 th/mm3 (0.0-0.2); Baso % (Auto) 0.8 % (0.0-2.0); Eos # (Auto) 0.2 th/mm3 (0.0-0.4); Eos % (Auto) 1.7 % (0.0-4.0); Hematocrit 38.1 % (39.0-51.0); Hemoglobin 12.4 gm/dL (13.0-17.0); Lymph # (Auto) 3.5 th/mm3 (1.0-4.8); Lymph % (Auto) 33.3 % (9.0-44.0); Mean Corpuscular HGB Conc 32.6 % (32.0-36.0); Mean Corpuscular Hemoglobin 29.4 pg (27.0-34.0); Mean Corpuscular Volume 90.3 fL (80.0-100.0); Mean Platelet Volume 10.9 fL (7.0-11.0); Mono # (Auto) 0.7 th/mm3 (0.0-0.9); Mono % (Auto) 6.8 % (0.0-8.0); Neut % (Auto) 57.4 % (16.0-70.0); Platelet Count 172 th/mm3 (150-450); Red Blood Count 4.22 mil/mm3 (4.50-5.90); Red Cell Distribution Width 12.7 % (11.6-17.2); White Blood Count 10.4 th/mm3 (4.0-11.0)
[2018-01-11 18:18] LABS: Alanine Aminotransferase 23 U/L (12-78); Albumin 3.5 g/dL (3.4-5.0); Alkaline Phosphatase 94 U/L (45-117); Anion Gap 7 meq/L (5-15); Blood Urea Nitrogen 20 mg/dL (7-18); Calcium 8.5 mg/dL (8.5-10.1); Carbon Dioxide 26.8 meq/L (21.0-32.0); Chloride 104 meq/L (98-107); Glomerular Filtration Rate 68 mL/min (>89); Glucose,Random 232 mg/dL (74-106); Sodium 138 meq/L (136-145); Total Protein 7.9 g/dL (6.4-8.2); Troponin I 0.12 ng/mL (0.02-0.05)
[2018-01-11 18:19] LABS: Aspartate Aminotransferase 28 U/L (15-37); Creatine Kinase 223 U/L (39-308); Magnesium 1.9 mg/dL (1.5-2.5); Potassium 4.3 meq/L (3.5-5.1)
[2018-01-11 18:23] LABS: Activated Partial Thrombo Time 24.9 sec (24.3-30.1); Prothrombin Time 9.8 sec (9.8-11.6)
[2018-01-11 18:31] LABS: Creatine Kinase MB 1.7 ng/mL (0.5-3.6)
--- NOTE | 2018-01-11 18:32 | ED ---
HPI General Chief complaint: Hypertension Stated complaint: Dizziness/Poss High Blood Presure Time Seen by Provider: 01/11/18 16:51 Source: patient Mode of arrival: ambulatory Limitations: no limitations History of Present Illness HPI narrative: 47-year-old male the presents to the ED for evaluation of hypertension and dizziness and headache. Per patient his had history of high blood pressure and takes medications for it. Per patient is compliant with this. The patient yesterday he started feeling dizzy after work. Per patient he was working outside and he thought it was just related to working outside. Per patient today she did not work outside and around 11:00 he started feeling dizzy. His family member who is a nurse check his blood pressure his blood pressure was in the 230s systolic. He was concerned and his family member recommended that he comes here. He does report that he has had a headache today but he believes is more secondary to waiting in the waiting room for a long time. He denies any chest pain or shortness of breath. He is having some weakness to his left arm. The patient the pain is 2 out of 10. Feels like a dull headache. No other medical issues. No numbness, tingling, weakness or than stated above. No back pain. No chest pain. 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 Related Data Home Medications Medication Instructions Recorded Confirmed atorvastatin 40 mg PO DAILY 01/11/18 01/11/18 carvedilol 25 mg PO BID 01/11/18 01/11/18 enalapril maleate 10 mg PO DAILY 01/11/18 01/11/18 metformin 500 mg PO BID 01/11/18 01/11/18 Allergies Allergy/AdvReac Type Severity Reaction Status Date / Time morphine Allergy Severe ITCHY AND Verified 01/11/18 17:13 HOT Review of Systems ROS: all other systems reviewed are negative [facility] Medical History Medical History Diabetes (Acute) HBP (high blood pressure) (Acute) High cholesterol (Acute) Surgical History Surgical History Hx of hernia repair (Acute) Hx of knee surgery (Acute) Social History Social History Substance History: No History of Abuse Second Hand Smoke Exposure: No Smoking Status: Never smoker How Often Do You Have a Drink Containing Alcohol: 2 to 4 times a month Recent Travel in [facility] within the Last 8 Weeks: No Recent Out of Country Travel within the Last 8 Weeks: No Immunization History Tetanus Immunization: >5 Years Hx Influenza Vaccine This Season: No Exam Narrative Exam Narrative: GENERAL: Well appearing SKIN: Focused skin assessment warm/dry. HEAD: Atraumatic. Normocephalic. EYES: Pupils equal and round. No scleral icterus. No injection or drainage. ENT: No nasal bleeding or discharge. Mucous membranes pink and moist. Tongue is midline. No uvula deviation. NECK: Trachea midline. No JVD. CARDIOVASCULAR: Regular rate and rhythm. No murmur appreciated. RESPIRATORY: No accessory muscle use. Clear to auscultation. Breath sounds equal bilaterally. GASTROINTESTINAL: Abdomen soft, non-tender, nondistended. Hepatic and splenic margins not palpable. MUSCULOSKELETAL: No obvious deformities. No clubbing. No cyanosis. No edema. Full range of motion of the upper and lower extremities bilaterally. 2+ pulses bilaterally. No neurological deficits noted. NEUROLOGICAL: Awake and alert. No obvious cranial nerve deficits. Motor grossly within normal limits. Normal speech. PSYCHIATRIC: Appropriate mood and affect; insight and judgment normal. Course Initial Documented Vital Signs Temperature 98.0 F 01/11/18 13:29 Pulse Rate 86 01/11/18 13:29 Respiratory Rate 18 01/11/18 13:29 Blood Pressure 225/124 H 01/11/18 13:29 Pulse Oximetry 96 01/11/18 13:29 Last Documented Vital Signs Temperature 97.8 F 01/11/18 18:50 Pulse Rate 71 01/11/18 19:11 Respiratory Rate 18 01/11/18 19:11 Blood Pressure 168/89 H 01/11/18 19:11 Pulse Oximetry 99 01/11/18 19:11 Medical Decision Making DARIN Attestation DARIN supervised visit: Yes Attestation: I, Dr. Harp, have reviewed the advance practice practitioner's documentation and am in agreement, met with the patient face to face, made the diagnosis, and the medical decision making was done by me. *My assessment and Findings: Patient is a 47-year-old male who presents the emergency room with complaints of hypertension. Patient's initial blood pressure was 225/124, he was given IV antihypertensive medications and his current blood pressure is 168/89. Labs were reviewed, patient with a creatinine of 1.36, troponin of 0.12, patient with hypertensive urgency. Labs were reviewed with patient, discussed need for admission to the hospital for blood pressure control. MDM Narrative Medical decision making narrative: 47-year-old male the presents to the ED for evaluation of hypertension and dizziness. Patient was properly examined and was found to have signs and symptoms consistent appears to be hypertensive urgency versus emergency. Deafly concerning because of the symptoms. Labs and imaging were ordered. Labs and imaging did show what appears to be positive troponin as well as elevated creatinine and elevated BUN. This appears to be new except for the troponin which has been higher before. Patient still complains of numbness to the left side of the arm which he has not had before. Recommendations for admission for further evaluation. Patient was given labetalol with improvement of the blood pressure. Case discussed with Dr. Painting who agrees to admission. My attending Dr. Harp evaluate the patient with me and agrees with plan. Medical Screen Exam Complete: Yes Emergency Medical Condition: Yes Differential Diagnosis Differential Diagnosis: Hypertensive emergency versus hypertensive urgency versus hypertension versus dizziness versus CVA versus TIA versus ACS Medical Records Medical records reviewed: Yes I reviewed the patient's medical records. Lab Data Lab results reviewed: Yes I reviewed the patient's lab results. Lab results narrative: Troponin and CK-MB negative. Result diagrams: 01/11/18 17:20 01/11/18 17:20 Lab Results 01/11/18 01/11/18 01/11/18 Range/Units 17:20 17:20 17:20 WBC 10.4 (4.0-11.0) th/mm3 RBC 4.22 L (4.50-5.90) mil/mm3 Hgb 12.4 L (13.0-17.0) gm/dL Hct 38.1 L (39.0-51.0) % MCV 90.3 (80.0-100.0) fL MCH 29.4 (27.0-34.0) pg MCHC 32.6 (32.0-36.0) % RDW 12.7 (11.6-17.2) % Plt Count 172 (150-450) th/mm3 MPV 10.9 (7.0-11.0) fL Neut % (Auto) 57.4 (16.0-70.0) % Lymph % (Auto) 33.3 (9.0-44.0) % Vigo % (Auto) 6.8 (0.0-8.0) % Eos % (Auto) 1.7 (0.0-4.0) % Baso % (Auto) 0.8 (0.0-2.0) % Neut # (Auto) 6.0 (1.8-7.7) th/mm3 Lymph # (Auto) 3.5 (1.0-4.8) th/mm3 Vigo # (Auto) 0.7 (0.0-0.9) th/mm3 Eos # (Auto) 0.2 (0.0-0.4) th/mm3 Baso # (Auto) 0.1 (0.0-0.2) th/mm3 WBC Differential . Differential Comment Auto diff final PT 9.8 (9.8-11.6) sec INR 1.0 Ratio APTT 24.9 (24.3-30.1) sec Sodium 138 (136-145) meq/L Potassium 4.3 (3.5-5.1) meq/L Chloride 104 (98-107) meq/L Carbon Dioxide 26.8 (21.0-32.0) meq/L Anion Gap 7 (5-15) meq/L BUN 20 H (7-18) mg/dL Creatinine 1.36 H (0.60-1.30) mg/dL Estimated GFR 68 L (>89) mL/min Random Glucose 232 H (74-106) mg/dL Calcium 8.5 (8.5-10.1) mg/dL Magnesium 1.9 (1.5-2.5) mg/dL Total Bilirubin 0.5 (0.2-1.0) mg/dL AST 28 (15-37) U/L ALT 23 (12-78) U/L Alkaline Phosphatase 94 (45-117) U/L Total Creatine Kinase 223 (39-308) U/L CK-MB (CK-2) 1.7 (0.5-3.6) ng/mL Troponin I 0.12 H (0.02-0.05) ng/mL Total Protein 7.9 (6.4-8.2) g/dL Albumin 3.5 (3.4-5.0) g/dL Imaging Data Attestation: I personally reviewed and interpreted this imaging study as follows : Radiologist's impression: Chest X-Ray 01/11/18 17:12 CONCLUSION: Negative examination. Head CT 01/11/18 17:12 CONCLUSION: 1. Negative CT Head non contrast. . ECG Data Attestation: I personally reviewed and interpreted this ECG as follows: Interpretation: EKG shows sinus rhythm with no sign of acute ischemia or arrhythmia. Ventricular rate 66 bpm, MI interval 184 ms. Read by me and attending. Discharge Plan Discharge Disposition Patient Disposition: 30 Still Patient Discharge Details Diagnosis: Hypertensive urgency, Elevated troponin I level, JOSEFINA (acute kidney injury) Physicians Team ED Provider: Kavita Harp ED Midlevel Provider: Chao Samuel Primary Care Provider: JOHN, Attending Provider: Doug Hwang Discharge Interventions Interventions: Vital Signs Last Done: 01/11/18 19:11 Status ED Status: Admitted Observation Patient
[2018-01-11] MEDS ORDERED: Dextrose 50% in Water 50 ML Vial IV.PUSH PRN (19:53)
[2018-01-11] MEDS: Metoprolol Tartrate 25 MG Tablet PO SCH (20:21)
[2018-01-11] MEDS: Insulin NovoLOG Aspart Correctional Sugar Inj SQ SCH (20:49)
[2018-01-12 07:36] LABS: Anion Gap 9 meq/L (5-15); Blood Urea Nitrogen 13 mg/dL (7-18); Calcium 8.4 mg/dL (8.5-10.1); Carbon Dioxide 25.6 meq/L (21.0-32.0); Chloride 105 meq/L (98-107); Glomerular Filtration Rate Greater Than 89 mL/min (>89); Glucose,Random 233 mg/dL (74-106); Potassium 3.8 meq/L (3.5-5.1); Sodium 140 meq/L (136-145)
[2018-01-12] MEDS ORDERED: Aspirin 325 MG Tablet PO SCH (09:00)
[2018-01-12] MEDS: Metoprolol Tartrate 25 MG Tablet PO SCH (09:01)
[2018-01-12] MEDS: Insulin NovoLOG Aspart Correctional Sugar Inj SQ SCH ×2 (09:02→13:29)
[2018-01-12 10:40] LABS: Hematocrit 37.7 % (39.0-51.0); Hemoglobin 12.3 gm/dL (13.0-17.0); Mean Corpuscular HGB Conc 32.7 % (32.0-36.0); Mean Corpuscular Hemoglobin 29.4 pg (27.0-34.0); Mean Corpuscular Volume 90.1 fL (80.0-100.0); Platelet Count 169 th/mm3 (150-450); Red Blood Count 4.18 mil/mm3 (4.50-5.90); Red Cell Distribution Width 12.6 % (11.6-17.2); White Blood Count 8.6 th/mm3 (4.0-11.0)
--- NOTE | 2018-01-12 19:34 | ECG ---
Date Performed: 01/11/2018 Time Performed: 18:01:28 PTAGE: 47 years EKG: Sinus rhythm INFERIOR MYOCARDIAL INFARCTION NONSPECIFIC T WAVE ABNORMALITY Since the previous tracing, no signifi cant change noted ABNORMAL ECG PREVIOUS TRACING : 07/23/2017 05.18 DOCTOR: Olvin Thompson Interpretating Date/Time 01/12/2018 19:33:15
== END 2018-01-12 14:07 | disposition home or self-care (01) ==
LOC: NEPE 13:25 → NEDA 13:25 → NEPGCP 21:18
PROVIDERS: ADMIT Family Medicine; ATTEND Family Medicine
DX: R94.31 Abnormal electrocardiogram [ECG] [EKG]; N17.9 Acute kidney failure, unspecified; Z88.5 Allergy status to narcotic agent; I25.10 Atherosclerotic heart disease of native coronary artery without angina pectoris; Z82.49 Family history of ischemic heart disease and other diseases of the circulatory system; I25.2 Old myocardial infarction; Z79.84 Long term (current) use of oral hypoglycemic drugs; E11.40 Type 2 diabetes mellitus with diabetic neuropathy, unspecified; E78.5 Hyperlipidemia, unspecified; I10 Essential (primary) hypertension; I16.1 Hypertensive emergency; E78.00 Pure hypercholesterolemia, unspecified; R74.8 Abnormal levels of other serum enzymes